=== PATIENT | female | born 1970 | race Caucasian/White ===

== ENCOUNTER → 2022-08-23 12:17 | Outpatient (BNVA) | payer OTHER, SELFPAY | PROVIDERS: Visit Provider Internal Medicine | DX: S93.491A Sprain of other ligament of right ankle, initial encounter (principal); W18.39XA Other fall on same level, initial encounter | CPT/HCPCS: 73610; 99204 ==

== ENCOUNTER 2024-01-13 14:19 | Outpatient (AMB) | payer OTHER, SELFPAY ==
--- NOTE | 2024-01-13 14:26 | A.OFFPC_ITS ---
Vital Signs 01/13/24 14:32 Height 5 ft 2 in Weight 167 lb BMI 30.5 BP 112/53 L Blood Pressure Location Rt brachial Position Sitting Respiration 16 Pulse 88 Pulse Source Pulse Oximeter Pulse Oximetry (%) 98 Oxygen Delivery Method Room Air Intake Visit Reasons: Establish Care transfer from [facility] Intake Note: patient here for new patient visit ,transferring from [facility]. 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: No Is last menstrual period known: No Post menopausal: No Patient : No Allergies pencillin Allergy (Severe, Uncoded 01/13/24 14:27) Anaphylaxis Tobacco use date assessed: 01/13/24 Dental Screening Dental Screen Date: 01/13/24 Did you have a dental visit in the last 12 months?: Yes Did you have a dental problem in the last 6 months where you did not have access to dental care?: No Was dental information given to patient?: Patient has dentist HPI HPI Comments History of Present Illness Details The patient is a 53 year old female with a past medical history of hypothyroidism, hyperlipidemia, depression, arthritis, seizure, presenting for follow up Hypothyroid-On levothyroxine 88mcg daily. MSK-Bilateral hip pain. R>L. More than one year. Chronic left foot pain. History of uterine polyp, ovarian cysts and PMB. Medication did not stop bleeding. Ended up getting transvaginal polypectomy/ablation of poly then bilate ral salpingoopherectomy. Insomnia-on trazodone Preventive Mammo-09/[address] Turcios-rohit 10 year repeat. ROS see HPI PHYSICAL EXAM: GENERAL: Alert and oriented x 3. NAD EYES: EOMI. Anicteric. HENT: Moist mucous membranes. No scleral icterus. No cervical lymphadenopathy. LUNGS: Clear to auscultation bilaterally. CARDIOVASCULAR: Regular rate and rhythm. No murmur. No JVD. ABDOMEN: Soft, non-tender +bs EXTREMITIES: No edema. Non-tender. SKIN: No rashes or lesions. Warm. NEUROLOGIC: No focal neurological deficits. CN II-XII grossly intact PSYCHIATRIC: Cooperative. 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 How often do you have a drink containing alcohol?: 2-4 times a month 2. How many drinks containing alcohol do you have on a typical day when you are drinking?: 3 or 4 3. How often do you have six or more drinks on one occasion?: Never Total Score: 3 Physical exam (Primary Care) Vital Signs: Last Vital Signs Pulse 88 01/13/24 14:32 Resp 16 01/13/24 14:32 BP 112/53 L 01/13/24 14:32 Pulse Ox 98 01/13/24 14:32 Oxygen Delivery Method Room Air 01/13/24 14:32 BMI result Body Mass Index 30.5 Tobacco/Smoking Status: Tobacco use Status Tobacco use date assessed 01/13/24 01/13/24 14:32 Patient Tobacco Use Status Former Tobacco user 01/13/24 14:32 e-Cigarette/Vaping Use Never Used 01/13/24 14:32 Assessment and Plan Assessment & Plan (1) Left foot pain: Code(s): M79.672 - Pain in left foot Plan: referral to ortho (2) Bilateral primary osteoarthritis of hip: Code(s): M16.0 - Bilateral primary osteoarthritis of hip Plan: referral to ortho placed (3) Hypothyroid: Code(s): E03.9 - Hypothyroidism, unspecified Qualifiers: Hypothyroidism type: unspecified Qualified Code(s): E03.9 - Hypothyroidism, unspecified Plan: clinically and biochemicall euthyroid Orders: Orders TSH reflex Free T4 01/13/24 E03.9 - Hypothyroidism, unspecified Referrals Orthopedics Referral M79.672 - Pain in left foot, M16.0 - Bilateral primary osteoarthritis of hip Medications: New levothyroxine 88 mcg PO DAILY 90 tabs 3RF Coding Level of Care Code Est Pt Level 4 (93441) Diagnoses Left foot pain M79.672 Bilateral primary osteoarthritis of hip M16.0 Hypothyroidism, unspecified type E03.9 Hypothyroidism type: unspecified
[2024-01-13 14:32] VITALS: BP 112/53; PULSE 88; RESP 16; O2SAT 98; BMI 30.5
== END 2024-01-13 15:29 | disposition home or self-care (01) ==
PROVIDERS: PCP Internal Medicine; Visit Provider Internal Medicine
DX: M79.672 Pain in left foot (principal); M16.0 Bilateral primary osteoarthritis of hip; E03.9 Hypothyroidism, unspecified
CPT/HCPCS: 99214

== ENCOUNTER 2024-01-13 15:32 | Outpatient (REF) | payer OTHER, SELFPAY ==
[2024-01-13 18:22] LABS: TSH reflex Free T4 0.21 uIU/mL (0.32-4.0)
[2024-01-13 21:20] LABS: Free T4 (Free Thyroxine) 1.51 ng/dL (0.71-1.85)
== END 2024-01-13 15:33 | disposition home or self-care (01) ==
LOC: HO.WFDLDS 15:32
PROVIDERS: Visit Provider Internal Medicine
DX: E03.9 Hypothyroidism, unspecified (principal)
CPT/HCPCS: 36415; 84439; 84443

== ENCOUNTER 2024-02-27 10:30 | Outpatient (AMB) | payer OTHER, SELFPAY ==
--- NOTE | 2024-02-27 10:46 | MHC.OFFWIV ---
Intake Vital Signs 02/27/24 10:50 Height 5 ft 2 in Weight 173 lb BMI 31.6 BP 112/62 Blood Pressure Location Lt brachial Position Sitting Respiration 14 Pulse 87 Pulse Source Pulse Oximeter Temp 98.6 F Temp Source Oral Pulse Oximetry (%) 99 Oxygen Delivery Method Room Air Intake Visit Reasons: est/uti Intake Note: patient complaining of burning when urinating and frequency x 2 days. Patient Tobacco Use Status: Former Tobacco user Allergies sulfamethoxazole [From Bactrim] Allergy (Intermediate, Verified 02/27/24 10:49) upset stomach trimethoprim [From Bactrim] Allergy (Intermediate, Verified 02/27/24 10:49) upset stomach pencillin Allergy (Severe, Uncoded 01/13/24 14:27) Anaphylaxis Do you need a note to return to daycare/school/sports/work: No HPI HPI Comments History of Present Illness Details 53 y/o female presents with c/o urinary frequency and burning with urination for the past 2 days. She has been hydrating with water and cranberry juice. She denies blood or discharge with urination. No abdominal pain or back pain. No fever, chills, body aches. 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 Current occupational exposures/hazards: No Cognitive needs: No Hearing needs: No Vision needs: Yes Review of Systems Const Details: Const Denies chills, Denies fatigue, Denies fever(s), Denies headache(s) and Denies weakness ENT Denies change in vision, Denies dizziness, Denies headache(s), Denies hearing loss, Denies nasal congestion, Denies sinus pain, Denies sinus pressure and Denies sore throat Resp Denies cough, Denies dyspnea, Denies wheezing and Denies other (shortness of breath) Cardio Denies chest pain, Denies lightheadedness, Denies dyspnea and Denies other (palpitations) Neuro Denies dizziness, Denies headache(s), Denies numbness, Denies tingling and Denies weakness Reports as per HPI Endo Denies fatigue Aller/Immun Denies wheezing Physical Exam Vital Signs: Last Vital Signs Temp 98.6 F 02/27/24 10:50 Pulse 87 02/27/24 10:50 Resp 14 02/27/24 10:50 BP 112/62 02/27/24 10:50 Pulse Ox 99 02/27/24 10:50 Oxygen Delivery Method Room Air 02/27/24 10:50 BMI result Body Mass Index 31.6 Const Other: Const General: well developed; No acute distress Nutritional Appearance: well nourished Orientation/consciousness: patient oriented x3 HEENT Head: Yes normocephalic and Yes atraumatic Eyes General: appearance normal, both eyes and all related structures Pupils: Equal, round and reactive pupils present EOM: EOMs intact bilaterally Resp Effort & Inspection: normal respiratory effort Auscultation: clear to auscultation bilaterally Cardio Rate: regular rate Rhythm: regular rhythm Heart sounds: S1 normal heart sound present, S2 normal heart sound present, no gallops, no murmurs and no rubs Bruits: no abdominal aortic bruits and no carotid bruits Neuro General: patient oriented x3 and gait normal, no focal neuro deficit Cranial nerves: Yes Equal, round and reactive pupils present GI Abdomen is soft, nontender, nondistended No CVA tenderness Psych Affect: normal affect Results AMB Urinalysis Dipstick UR Leukocytes Moderate Last Edit by Barbra Alonso MA on 02/27/24 11:15 UR Nitrite Negative Last Edit by Barbra Alonso MA on 02/27/24 11:15 UR Urobilinogen Normal Last Edit by Barbra Alonso MA on 02/27/24 11:15 UR Protein Negative Last Edit by Barbra Alonso MA on 02/27/24 11:15 UR Ph 6.0 Last Edit by Barbra Alonso MA on 02/27/24 11:15 UR Blood Negative Last Edit by Barbra Alonso MA on 02/27/24 11:15 UR Specific [place] 1.010 Last Edit by Barbra Alonso MA on 02/27/24 11:15 UR Ketone Negative Last Edit by Barbra Alonso MA on 02/27/24 11:15 UR Bilirubin Negative Last Edit by Barbra Alonso MA on 02/27/24 11:15 UR Glucose Negative Last Edit by Barbra Alonso MA on 02/27/24 11:15 Results Reviewed Results Reviewed: Laboratory Last Values Urine pH (Clinic) 6.0 02/27/24 11:08 Specific [place] (Clinic) 1.010 02/27/24 11:08 Ur Protein (Clinic) Negative 02/27/24 11:08 Ur Ketones (Clinic) Negative 02/27/24 11:08 Urine Blood (Clinic) Negative 02/27/24 11:08 Urine Nitrite Negative 02/27/24 11:08 Urine Bilirubin (Clinic) Negative 02/27/24 11:08 Urobilinogen (Clinic) Normal 02/27/24 11:08 Leukocyte Esterase (Clinic) Moderate 02/27/24 11:08 Urine Glucose (Clinic) Negative 02/27/24 11:08 Assessment & Plan Assessment & Plan (1) Urinary tract infection: Code(s): N39.0 - Urinary tract infection, site not specified Plan: Dysuria and urinary frequency x2 days No CVA tenderness Abdomen is soft, nontender, nondistended Urine dip is positive for leukocyte, negative for nitrite or blood Will send urine to the lab for urinalysis and culture Macrobid ordered. Advised to take as prescribed. Instructed on the risks, benefits, and potential adverse reactions of the medication Declines Pyridium for dysuria Adequate hydration encouraged Return with worsening or new symptoms Verbalized understanding and agreed with the treatment plan Orders: Orders UA CC w/rflx Micro + Cult Today N39.0 - Urinary tract infection, site not specified AMB Urinalysis Dipstick Today Z13.9 - Encounter for screening, unspecified Medications: New nitrofurantoin monohyd/m-cryst 100 mg (Macrobid) must administer with a meal/food 100 mg PO Q12H 10 caps 0RF 5 days Coding Level of Care Code Est Pt Level 3 (90517) Diagnoses Urinary tract infection N39.0
[2024-02-27 10:50] VITALS: BP 112/62; PULSE 87; RESP 14; TEMP 37; O2SAT 99; BMI 31.6
== END 2024-02-27 11:07 | disposition home or self-care (01) ==
PROVIDERS: PCP Internal Medicine; Visit Provider Nurse Practitioner Family
DX: N39.0 Urinary tract infection, site not specified (principal); Z13.9 Encounter for screening, unspecified

== ENCOUNTER 2024-02-27 10:30 | Outpatient (REF) | payer OTHER, SELFPAY ==
[2024-02-27 15:18] LABS: Appearance Urine Clear; Color Urine Yellow; Glucose Urine UA Negative (Negative); Leukocyte Esterase Urine Large (3+) (Negative); Nitrite Urine Negative (Negative); Specific Gravity - Urine <= 1.005 (1.005-1.025); UMIC TRIGGER UACC YES; Urine Blood Negative (Negative); Urine Ketones Negative (Negative); Urine Protein Negative (Neg-Trace)
[2024-02-27 15:24] LABS: Bacteria Urine 4+ (None Seen); Hyaline Casts Urine 0-2 /LPF (0-2); RBC Urine 0-2 /HPF (0-2); Squamous Epithelial Cell Urine 0-2 /HPF (0-2); UACC Culture Trigger YES; WBC Urine >50 /HPF (0-5)
== END 2024-02-27 10:31 | disposition home or self-care (01) ==
LOC: HO.LNP 10:30
PROVIDERS: PCP Internal Medicine; Visit Provider Nurse Practitioner Family
DX: N39.0 Urinary tract infection, site not specified (principal)
CPT/HCPCS: 81001; 81002; 87086; 87088; 87186

== ENCOUNTER → 2024-07-20 15:33 | Outpatient (BNVA) | payer OTHER, SELFPAY | PROVIDERS: PCP Internal Medicine; Visit Provider Internal Medicine | DX: Z00.00 Encounter for general adult medical examination without abnormal findings (principal); E03.9 Hypothyroidism, unspecified; E78.5 Hyperlipidemia, unspecified; F32.A Depression, unspecified; M16.0 Bilateral primary osteoarthritis of hip; M25.50 Pain in unspecified joint; G89.29 Other chronic pain; M53.3 Sacrococcygeal disorders, not elsewhere classified | CPT/HCPCS: 96127 ==

== ENCOUNTER → 2024-07-20 16:33 | Outpatient (AMB) | payer OTHER, SELFPAY ==
--- NOTE | 2024-07-20 15:59 | MHC.PC.OV ---
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 Chemical Process Engineer Required: No Allergies sulfamethoxazole [From Bactrim] Allergy (Intermediate, Verified 07/20/24 15:59) upset stomach trimethoprim [From Bactrim] Allergy (Intermediate, Verified 07/20/24 15:59) upset stomach pencillin Allergy (Severe, Uncoded 07/20/24 15:59) Anaphylaxis Tobacco use date assessed: 07/20/24 Dental Screening Dental Screen Date: 07/20/24 Did you have a dental visit in the last 12 months?: Yes Did you have a dental problem in the last 6 months where you did not have access to dental care?: No Was dental information given to patient?: Patient has dentist HPI HPI Comments History of Present Illness Details The patient is a 54 year old female with a past medical history of hypothyroidism, hyperlipidemia, depression, arthritis, seizure, presenting for physical exam Hypothyroid-On levothyroxine 88mcg daily. MSK-Bilateral hip pain. R>L. More than one year. Chronic left foot pain. Recent increased shoulder and neck pain. she has been doing a lot of painting. 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 Some right sided sciatica History of uterine polyp, ovarian cysts and PMB. Medication did not stop bleeding. Ended up getting transvaginal polypectomy/ablation of poly then bilateral salpingoopherectomy. Insomnia-on trazodone Recent sinus pressure, ear pain L>R. Congestion +post nasal drip Preventive Mammo-09/[address] Brody 10 year repeat. ROS see HPI PHYSICAL EXAM: GENERAL: Alert and oriented x 3. NAD EYES: EOMI. Anicteric. HENT: Moist mucous membranes. No scleral icterus. No cervical lymphadenopathy. LUNGS: Clear to auscultation bilaterally. CARDIOVASCULAR: Regular rate and rhythm. No murmur. No JVD. ABDOMEN: Soft, non-tender +bs EXTREMITIES: No edema. Non-tender. SKIN: No rashes or lesions. Warm. NEUROLOGIC: No focal neurological deficits. CN II-XII grossly intact PSYCHIATRIC: Cooperative. 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 1. Little interest or pleasure in doing things: not at all 2. Feeling down, depressed, or hopeless: not at all 3. Trouble falling or staying asleep, or sleeping too much: not at all 4. Feeling tired or having little energy: not at all 5. Poor appetite or overeating: not at all 6. Feeling bad about yourself - or that you are a failure or have let yourself or your family down: not at all 7. Trouble concentrating on things, such as reading the newspaper or watching television: not at all 8. Moving or speaking so slowly that other people could have noticed. Or the opposite - being so fidgety or restless that you have been moving around a lot more than usual: not at all 9. Thoughts that you would be better off or of hurting yourself in some way: not at all Total score: 0 Depression Screening Interpretation: Negative Depression Screening Done: Yes 25618 - PHQ-9 Billing: Yes Source: Developed by Drs. Jeffry Hurtado, Bella Aguayo, Artemio Land and colleagues, with an educational josephine from [employer]. Thrive Questionnaire Date Thrive assessed: 07/17/24 I am a: Patient What is your living situation today?: I have a steady place to live Within the past 12 months, did the food you bought not last and you didn't have the money to get more?: Never true Within the past 12 months, did you worry whether your food would run out before you got money to buy more?: Never true Do you have trouble paying for medicines?: No Do you have trouble getting transportation to medical appointments?: No Do you have trouble paying your heating and electricity bill?: No Do you have trouble taking care of your child, family member or friend?: No Do you have trouble with day-to-day activities such as bathing, preparing meals, shopping, managing finances, etc.?: No Are you currently unemployed and looking for a job?: No Are you interested in more education?: No Please select the resources that you would like help with: None Currently or been in a relationship where the following occur: No concerns reported THRIVE Score: 0 AUDIT C Alcohol Use Questionnaire (AUDIT-C) 1. How often do you have a drink containing alcohol?: Monthly or less 2. How many drinks containing alcohol do you have on a typical day when you are drinking?: 1 or 2 3. How often do you have six or more drinks on one occasion?: Less than monthly Total Score: 2 REDDY-7 AMB Questionnaire REDDY-7 Feeling nervous, anxious, or on edge: 0 = Not at all Not being able to stop or control worryin = Not at all Worrying too much about different things: 0 = Not at all Trouble relaxin = Not at all Being so restless that it is hard to sit still: 0 = Not at all Becoming easily annoyed or irritable: 0 = Not at all Feeling afraid as if something awful might happen: 0 = Not at all Total REDDY-7 score (0-4 normal; 5-9 mild; 10-14 moderate; 15-21 severe): 0 Source: Developed by Drs. Jeffry Hurtado, Bella Aguayo, Artemio Land and colleagues, with an educational josephine from [employer]. Physical exam (Primary Care) Vital Signs: Last Vital Signs Pulse 84 07/20/24 16:07 BP 112/78 07/20/24 16:07 Pulse Ox 99 07/20/24 16:07 Oxygen Delivery Method Room Air 07/20/24 16:07 BMI result Body Mass Index 31.9 Tobacco/Smoking Status: Tobacco use Status Tobacco use date assessed 07/20/24 07/20/24 16:00 Patient Tobacco Use Status Former Tobacco user 07/20/24 16:00 e-Cigarette/Vaping Use Never Used 07/20/24 16:00 PHQ-9: PHQ-9 Score PHQ-9: Total score 0 07/21/24 09:41 Depression Screening Interpretation: Negative Thrive Assessment: Date of Thrive Assessment Date Thrive assessed 07/17/24 07/20/24 16:00 Currently or been in a relationship where the following occur: No concerns reported Coding Level of Care Code Est Pt Prev Care 40-64y(82198) Diagnoses Physical exam Z00.00 Hypothyroidism, unspecified type E03.9 Hypothyroidism type: unspecified Additional Codes PHQ-9 - 28509 - PHQ-9 Billing: Yes ([id number]) Assessment & Plan Assessment & Plan (1) Physical exam: Code(s): Z00.00 - Encounter for general adult medical examination without abnormal findings Category: Medical Plan: 54 year old female for physical exam Chronic medical conditions reviewed. Interval history reviewed. Medications reconciled (2) Hypothyroid: Code(s): E03.9 - Hypothyroidism, unspecified Category: Medical Qualifiers: Hypothyroidism type: unspecified Qualified Code(s): E03.9 - Hypothyroidism, unspecified Plan: Recheck TSH. Avoid biotin containing products for 72 hours prior to lab draw Orders: Orders TSH reflex Free T4 07/20/24 E03.9 - Hypothyroidism, unspecified, M16.0 - Bilateral primary osteoarthritis of hip, M25.50 - Pain in unspecified joint, Z00.00 - Encounter for general adult medical examination without abnormal findings Lyme IgG/IgM w/reflex to WB 07/20/24 M25.50 - Pain in unspecified joint Comprehensive Met. Panel 07/20/24 E03.9 - Hypothyroidism, unspecified, M16.0 - Bilateral primary osteoarthritis of hip, M25.50 - Pain in unspecified joint, Z00.00 - Encounter for general adult medical examination without abnormal findings Lipid Panel 07/20/24 E03.9 - Hypothyroidism, unspecified, M16.0 - Bilateral primary osteoarthritis of hip, M25.50 - Pain in unspecified joint, Z00.00 - Encounter for general adult medical examination without abnormal findings Complete Blood Count Auto Diff 07/20/24 E03.9 - Hypothyroidism, unspecified, M16.0 - Bilateral primary osteoarthritis of hip, M25.50 - Pain in unspecified joint, Z00.00 - Encounter for general adult medical examination without abnormal findings XR lumbar spine 2-3V 07/20/24 G89.29 - Other chronic pain, M53.3 - Sacrococcygeal disorders, not elsewhere classified Medications: New doxycycline hyclate 100 mg PO BID 14 tabs 0RF
[2024-07-20 16:07] VITALS: BP 112/78; PULSE 84; O2SAT 99; BMI 31.9
== END | disposition home or self-care (01) ==
PROVIDERS: PCP Internal Medicine; Visit Provider Internal Medicine
DX: Z00.00 Encounter for general adult medical examination without abnormal findings (principal); E03.9 Hypothyroidism, unspecified

== ENCOUNTER 2024-07-28 13:41 | Outpatient (REF) | payer OTHER, SELFPAY ==
--- OUTSIDE RECORDS SUMMARY | 2024-07-28 14:39 | XMS_ITS | Encounter Summary ---
Author Organization [employer] [facility] Address [address] [place] [address] [place] [address] Care Team Providers Care Environmental Research Scientist Name Role Phone Unavailable Primary Care Provider Unavailabl e Encounter Details Date Type Department Care Team (Latest Contact Info) Description 08/08/2021 Abstract [facility] CONVERSION[facility] Dental, Provider, DDS Social History Tobacco Use Types Packs/Day Years Used Date Smoking Tobacco: Never Assessed Comments Unknown Sex and Gender Information Value Date Recorded Sex Assigned at Not on file Legal Sex Female 5:36 PM EDT Gender Identity Not on file Sexual Orientation Not on file documented as of this encounter Plan of Treatment Not on file documented as of this encounter Visit Diagnoses Not on filedocumented in this encounter
--- OUTSIDE RECORDS SUMMARY | 2024-07-28 14:39 | XMS_ITS | Encounter Summary ---
Author Organization [email or web address] [facility] Address [address] [place] [address] [place] [address] Care Team Providers Care Legal Investigator Name Role Phone Unavailable Primary Care Provider Unavailabl e Encounter Details Date Type Department Care Team (Latest Contact Info) Description 08/10/2019 [facility] CONVERSION[facility] Dental, Provider, DDS Social [...]
--- OUTSIDE RECORDS SUMMARY | 2024-07-28 14:39 | XMS_ITS | Encounter Summary ---
Author Organization [email or web address] [facility] Address [address] [place] [address] 7 [place] [address] Care Team Providers Care Dielectric Tester Name Role Phone Unavailable Primary Care Provider Unavailabl e Encounter Details Date Type Department Care Team (Latest Contact Info) Description 06/25/2018 Abstract [facility] CONVERSION[facility] Dental, Provider, DDS Social [...]
--- OUTSIDE RECORDS SUMMARY | 2024-07-28 14:39 | XMS_ITS | Clinical Summary ---
Author Organization [employer] Address [address] [place] [address] [address] [place] [address] Care Team Providers Care Fire Investigator Name Role Phone Unavailable Primary Care Provider Unavailabl e Social History Tobacco Use Types Packs/Day Years Used Date Smoking Tobacco: Never Assessed Comments Unknown Sex and Gender Information Value Date Recorded Sex Assigned at Not on file Legal Sex Female 5:36 PM EDT Gender Identity Not on file Sexual Orientation Not on file Plan of Treatment Health Maintenance Due Date Last Done Comments CT Colonography 1970 Colonoscopy 1970 Colorectal Cancer Screening 1970 Depression Screening 1970 FIT DNA/Cologuard 1970 FIT 1970 FOBT 1970 Sigmoidoscopy 1970 Alcohol/Substance Use Screening 1982 Tobacco Screening 1982 Hepatitis B Vaccines (1 of 3 - 19+ 3-dose series) 1989 Pap Smear 1991 Cervical Cancer Screening 2000 HPV/Cotest 2000 Dental X-Ray: Full Mouth 04/13/2008 04/12/2005 Mammogram 2010 Pneumococcal Vaccine: 50+ Years (1 of 1 - PCV) 2020 Zoster Vaccines (1 of 2) 2020 Dental X-Ray: Bitewings 08/10/2020 08/10/19 20, 06/25/2018, 10/24/2016, Additional history exists Dental Oral Exam 02/09/2022 08/08/2021, , 08/10/2019, Additional history exists Dental Prophylaxis 02/09/2022 08/08/2021, 0 12/01/2020, 08/10/2019, Additional history exists COVID-19 Vaccine ( season) 2024 05/17/2021, 04/26/2021 Influenza Vaccine (#1) 2024 9, 02/25/2018, 03/12/2014, Additional history exists DTaP/Tdap/Td Vaccines (3 - Td or Tdap) 12/29/2030 12/29/2020, 05/14/2011 RSV Patients and Patients Aged 60 years or older (1 - 1-dose 75+ series) 2045 HIB Vaccines Aged Out No longer eligi ble based on patient's age to complete this topic HPV Vaccines Aged Out No longer eligi ble based on patient's age to complete this topic Hepatitis A Vaccines Aged Out No long er eligible based on patient's age to complete this topic IPV Vaccines Aged Out No longer eligi ble based on patient's age to complete this topic Meningococcal Vaccine Aged Out No carmen nasir eligible based on patient's age to complete this topic Pneumococcal Vaccine: Pediatrics (0 to 5 Years) and At-Risk Patients (6 to 49) Years) Aged Out No longer eligible based on patient's age to complete this topic RSV under 20 months Aged Out No longe r eligible based on patient's age to complete this topic Rotavirus Vaccines Aged Out No longer eligible based on patient's age to complete this topic Procedures Procedure Name Priority Date/Time Associated Diagnosis Comments PROPHYLAXIS - ADULT Routine 08/08/2021 1 2:00 AM EST PERIODIC ORAL EVALUATION - ESTABLISHED PATIENT Routine 08/08/2021 12:00 AM EST BITEWINGS - 4 RADIOGRAPHIC IMAGES Routine 08/10/2019 12:00 AM EST INTRAORAL - COMPLETE SERIES OF RADIOGRAPHIC IMAGES Routine 04/12/2005 12:00 AM EST from Last 3 Months or Most Recently Relevant to Health Maintenance
--- OUTSIDE RECORDS SUMMARY | 2024-07-28 14:39 | XMS_ITS | Encounter Summary ---
Author Organization [employer] [facility] Address [address] [place] [address] 7 [place] [address] Care Team Providers Care Automobile Mechanic Name Role Phone Unavailable Primary Care Provider Unavailabl e Encounter Details Date Type Department Care Team (Latest Contact Info) Description 12/01/2020 Abstract [facility] CONVERSION[facility] Dental, Provider, DDS Social [...]
[2024-07-28 17:45] LABS: MANUAL DIFF FLAG NO
[2024-07-28 17:57] LABS: Basophils Absolute Auto 0.1 X10*3/uL (0.0-0.2); Basophils Percent Auto 0.7 % (0-2); Eosinophils Absolute Auto 0.1 X10*3/uL (0.0-0.4); Eosinophils Percent Auto 1.4 % (0-4); Hematocrit 42.5 % (37.0-47.0); Hemoglobin 13.5 g/dl (12.0-16.0); Imm Gran Abs Auto 0.02 X10*3/uL (0.00-0.03); Imm Gran Pct Auto 0.3 % (0.0-0.4); Lymphocytes Absolute Auto 3.7 X10*3/uL (1.2-4.9); Mean Corpuscular HGB Conc 31.8 g/dl (31.0-35.0); Mean Corpuscular Hemoglobin 29.7 pg (27.0-33.0); Mean Corpuscular Volume 93.6 fL (80.0-98.0); Mean Platelet Volume 9.7 fL (9.4-12.3); Monocytes Absolute Auto 0.3 X10*3/uL (0.1-1.2); Monocytes Percent Auto 4.5 % (2-11); Neutrophils Absolute Auto 2.9 x10*3/uL (2.0-8.3); Neutrophils Percent Auto 41.1 % (45-73); Platelet Count 307 X10*3/uL (160-400); Red Blood Count 4.54 X10*6/uL (4.20-5.50); White Blood Count 7.1 X10*3/uL (4.8-10.8)
[2024-07-28 18:27] LABS: Alanine Aminotransferase 28 U/L (0-31); Albumin Level 4.4 g/dL (3.5-5.0); Alkaline Phosphatase 69 U/L (39-117); Anion Gap 11 (12-20); Aspartate Amino Transferase 26 U/L (5-31); Bilirubin Total 0.5 mg/dL (0.0-1.0); Blood Urea Nitrogen 19 mg/dL (9-16); Calcium 9.6 mg/dL (8.4-10.2); Carbon Dioxide 28 mmol/L (22-29); Chloride 108 mmol/L (96-108); Cholesterol 226 mg/dL (<200); Estimated Glomerular Filt Rate > 60; Glucose Random 82 mg/dL (60-115); HDL Cholesterol 49 mg/dL (>40); LDL Cholesterol Calculated 98 mg/dL (<100); Potassium 4.2 mmol/L (3.3-5.1); Sodium 143 mmol/L (135-145); Total Protein 8.1 g/dL (6.5-8.0); Triglycerides 397 mg/dL (<150)
[2024-07-29 08:44] LABS: Lyme Abs Screen <0.90 index
== END 2024-07-28 13:42 | disposition home or self-care (01) ==
LOC: HO.WFDLDS 13:41
PROVIDERS: Visit Provider Internal Medicine
DX: Z00.00 Encounter for general adult medical examination without abnormal findings (principal); M16.0 Bilateral primary osteoarthritis of hip; E03.9 Hypothyroidism, unspecified; M25.50 Pain in unspecified joint
CPT/HCPCS: 36415; 80053; 80061; 84443; 85025; 86617; 86618

== ENCOUNTER 2024-08-05 13:14 | Outpatient (REF) | payer OTHER, SELFPAY ==
[2024-08-05 14:29] LABS: Basophils Percent Auto 0.5 % (0-2); Eosinophils Absolute Auto 0.1 X10*3/uL (0.0-0.4); Eosinophils Percent Auto 1.6 % (0-4); Hematocrit 38.4 % (37.0-47.0); Hemoglobin 12.2 g/dl (12.0-16.0); Imm Gran Abs Auto 0.01 X10*3/uL (0.00-0.03); Imm Gran Pct Auto 0.2 % (0.0-0.4); Lymphocytes Absolute Auto 3.6 X10*3/uL (1.2-4.9); Lymphocytes Percent Auto 62.8 % (20-40); MANUAL DIFF FLAG SCAN; Mean Corpuscular HGB Conc 31.8 g/dl (31.0-35.0); Mean Corpuscular Hemoglobin 29.6 pg (27.0-33.0); Mean Corpuscular Volume 93.2 fL (80.0-98.0); Mean Platelet Volume 9.8 fL (9.4-12.3); Monocytes Absolute Auto 0.3 X10*3/uL (0.1-1.2); Neutrophils Absolute Auto 1.7 x10*3/uL (2.0-8.3); Neutrophils Percent Auto 29.9 % (45-73); Platelet Count 240 X10*3/uL (160-400); Red Blood Count 4.12 X10*6/uL (4.20-5.50); Red Cell Distribution Width 12.9 % (11.0-16.0); SCAN SMEAR FLAG 1; White Blood Count 5.8 X10*3/uL (4.8-10.8)
[2024-08-05 14:49] LABS: SLIDE REVIEW VERIFIED
--- OUTSIDE RECORDS SUMMARY | 2024-08-05 16:12 | XMS_ITS | Encounter Summary ---
Author Organization [employer] [facility] Address [address] [place] [address] 7 [place] [address] Care Team Providers Care Cartographic Aide Name Role Phone Unavailable Primary Care Provider [...]
--- OUTSIDE RECORDS SUMMARY | 2024-08-05 16:12 | XMS_ITS | Encounter Summary ---
Author Organization [facility] Address [address] [place] [address] [place] [address] Care Team Providers Care Transit Planning Director Name Role Phone Unavailable Primary Care Provider [...]
--- OUTSIDE RECORDS SUMMARY | 2024-08-05 16:12 | XMS_ITS | Clinical Summary ---
Author Organization [employer] Address [address] [place] [address] 7 [place] [address] Care Team Providers Care Crude Oil Treater Name Role Phone Unavailable Primary Care Provider [...]
--- OUTSIDE RECORDS SUMMARY | 2024-08-05 16:13 | XMS_ITS | Encounter Summary ---
Author Organization [facility] [facility] Address [address] [place] [address] [place] [address] Care Team Providers Care Paperboard Boxes Estimator Name Role Phone Unavailable Primary Care Provider [...]
--- OUTSIDE RECORDS SUMMARY | 2024-08-05 16:13 | XMS_ITS | Encounter Summary ---
Author Organization [facility] Address [address] [place] [address] 7 [place] [address] Care Team Providers Care Psychiatric Nurse Name Role Phone Unavailable Primary Care Provider [...]
== END 2024-08-05 13:15 | disposition home or self-care (01) ==
LOC: HO.WFDLDS 13:14
PROVIDERS: Visit Provider Internal Medicine
DX: M79.89 Other specified soft tissue disorders (principal)
CPT/HCPCS: 85025

== ENCOUNTER 2024-09-30 08:07 | Outpatient (AMB) | payer OTHER, SELFPAY ==
--- OUTSIDE RECORDS SUMMARY | 2024-09-30 08:18 | XMS_ITS | Encounter Summary ---
Author Organization [employer] [facility] Address [address] [place] [address] 7 [place] [address] Care Team Providers Care Rollout Manager Name Role Phone Unavailable Primary Care Provider [...]
--- OUTSIDE RECORDS SUMMARY | 2024-09-30 08:18 | XMS_ITS | Encounter Summary ---
Author Organization [employer] [facility] Address [address] [place] [address] 7 [place] [address] Care Team Providers Care Escalation Engineer Name Role Phone Unavailable Primary Care Provider [...]
--- OUTSIDE RECORDS SUMMARY | 2024-09-30 08:18 | XMS_ITS | Encounter Summary ---
Author Organization [facility] Address [address] [place] [address] [place] [address] Care Team Providers Care Copy Coordinator Name Role Phone Unavailable Primary Care Provider [...]
--- OUTSIDE RECORDS SUMMARY | 2024-09-30 08:18 | XMS_ITS | Encounter Summary ---
Author Organization [facility] Address [address] [place] [address] [place] [address] Care Team Providers Care Nutrition Services Associate Name Role Phone Unavailable Primary Care Provider [...]
--- OUTSIDE RECORDS SUMMARY | 2024-09-30 08:18 | XMS_ITS | Clinical Summary ---
Author Organization [facility] Address [address] [place] [address] 7 [place] [address] Care Team Providers Care Mechanical Drawing Teacher Name Role Phone Unavailable Primary Care Provider [...]
--- OUTSIDE RECORDS SUMMARY | 2024-09-30 08:19 | XMS_ITS | Clinical Summary ---
Author Organization [facility] it Address [address] [place] [address] Care Team Providers Care Still Tender Name Role Phone Unavailable Primary Care Provider Unavailabl e Allergies Active Allergy Reactions Criticality Noted Date Comments Penicillins Anaphylaxis High 07/02/2011 Sulfamethoxazole-Trimethopr im 07/17/2013 Bactrim [Sulfamethoxazole W-trimethoprim] - Vomiting - 07/17/2013 Sulfamethoxazole-trimet hoprim - Medications levothyroxine (SYNTHROID, LEVOTHROID) 88 mcg tablet Take 1 Tablet by mouth daily. 02/06/2022 Active levothyroxine (SYNTHROID, LEVOTHROID) 50 mcg tablet TAKE 1 TABLET BY MOUTH EVERY DAY 07/10/2021 Active diphenhydrAMINE (BENADRYL) 25 mg capsule Take 1 Capsule by mouth. 01/03/2022 Active APPLE CIDER VINEGAR ORAL APPLE CIDER VINEGAR OR Take by mouth Active Active Problems Problem Noted Date Diagnosed Date Endometrial polyp 11/01/2021 Hydrosalpinx 11/01/2021 Overview (08/12/2024): Seen on u/s 11/01/2021 Left ovarian cyst 11/01/2021 Overview (08/12/2024): Pelvic sono 11/01/21: 4.1 x 4.0 x 2.0 cm septated left ovarian cyst Acquired hypothyroidism 01/25/2021 Arthritis, hip 01/05/2019 Immunizations Name Administration Dates Next Due Influenza Quadravalent, MDCK , 0.5ml, preservative free (Flucelvax) 6mo and older 02/18/2019,02/25/2018 Influenza trivalent, with pr eservative (Fluzone; Afluria) 6mo and older 03/12/2014,07/05/2009 MMR, measles mumps and rubel la Live (Priorix; M-M-R II) 12mo and older 02/25/[address] SARS-CoV-2 COVID-19, mRNA, LNP-S, preservative free 05/17/2021,04/26/2021 Td Tetanus diptheria (Tdvax) 7yo and older 12/29 Tdap Tetanus diptheria acell ular pertussis (Boostrix; Adacel) 7yo and older 05/14/2011 Surgical History Surgery Date Site/Laterality Comments TUBAL LIGATION PROCEDURE: HISTORICAL TUBAL LIGATION KNEE SURGERY PROCEDURE: HISTORICAL KNEE SURGERY; COMMENT: age 14 OTHER SURGICAL HISTORY PROCEDURE: HISTORICAL EAR SURGERY; COMMENT: as child WISDOM TOOTH EXTRACTION PROCEDURE: HISTORICAL WISDOM TEETH EXTRACTION OTHER SURGICAL HISTORY 09/24/11 PROCEDURE: [place] SALPINGOSTOMY; COMMENT: tubal reanastomosis OTHER SURGICAL HISTORY PROCEDURE: HISTORICAL D&C COLONOSCOPY PROCEDURE: HISTORICAL COLONOSCOPY; COMMENT: with endoscopy Medical History Medical History Date Comments Former smoker DX:Former smoker UTI (lower urinary tract infection) DX:UTI (lower urinary tract infection) Abnormal Pap smear of cervix 2006 DX: Abnormal Pap smear of cervix; COMMENT: colpo done, normal results since 2009 Syncope 1999 DX:Syncope; COMM ENT: ? seizure, one time, no recurrence Depression DX:Depression Family History Medical History Relation Name Comments Diabetes Mother Heart failure Mother Hypertension Mother Ovarian cancer Paternal Grandmother Breast cancer Neg Hx Colon cancer Neg Hx Uterine cancer Neg Hx Relation Name Status Comments Brother Alive half sib on mot her's side-bipolar disorder Daughter Alive healthy Father Alive unknown to zara ent. Raging alcoholic Maternal Grandfather (Age 60s) M I Maternal Grandmother (Age 60ish) suicide Mother Alive Paternal Grandfather (Age 80s) o ld age Paternal Grandmother (Age 80s) s moker, COPD Sister Alive half sib on fat her's side-healthy (not well known to patient) Son Alive healthy Social History Tobacco Use Types Packs/Day Years Used Date Smoking Tobacco: Former Cigarettes Q uit: 11/19/2006 Smokeless Tobacco: Never Alcohol Use Standard Drinks/Week Comments Yes 0 (1 standard drink = 0.6 oz pur e alcohol) Comments Unknown Sex and Gender Information Value Date Recorded Sex Assigned at Not on file Legal Sex Female 10:49 AM EST Gender Identity Not on file Sexual Orientation Not on file Obstetrics History Last Filed Vital Signs Vital Sign Reading Time Taken Comments Blood Pressure 101/68 08/14/2023 2:20 PM EST Sit ting L Arm Pulse 67 08/14/2023 2:20 PM EST Temperature - - Respiratory Rate - - Oxygen Saturation - - Inhaled Oxygen Concentration - - Weight 75.8 kg (167 lb) 08/14/2023 2:20 PM EST Height 157.5 cm (5' 2 ) 08/14/2023 2:20 PM EST Body Mass Index 30.54 08/14/2023 2:20 PM EST Plan of Treatment Upcoming Encounters Date Type Department Care Team (Late st Contact Info) Description 11/20/2024 2:30 PM EDT Office Visit Obstetrics and Gynecology - [address] [phone] Georgina Guidry, [facility] [address] [place] [address] Health Maintenance Due Date Last Done Comments Hepatitis B Vaccines (1 of 3 - 19+ 3-dose series) 1989 Pneumococcal Vaccine: 50+ Years (1 of 1 - PCV) 2020 Zoster Vaccines (1 of 2) 2020 Breast Cancer Screening 07/02/2020 07/02/2018, 06/25 Depression Screening 05/19/2022 HIV Screening 05/19/2022 Hepatitis C Screening 05/19/2022 Social Influencers of Health Screening 05/19/2022 COVID-19 Vaccine ( season) 2024 05/17/2021, 04/26/2021 Influenza Vaccine (Season Ended) 2025 02/18/2019, 02/25/2018, 03/12/2014, Additional history exists Cholesterol Screening (Lipid Panel) 12/29/2025 12/29/2020 Colorectal Cancer Screening: Colonoscopy 08/07/2028 08/07/2018 Cervical Cancer Screening: HPV 08/15/2028 08/16/2023 DTaP,Tdap,and Td Vaccines (3 - Td or Tdap) 12/29/2030 12/29/2020, 05/14/2011 MMR Vaccines Aged Out 02/25/2018 No longer eligi ble based on patient's age to complete this topic HIB Vaccines Aged Out No longer eligi [...] patient's age to complete this topic Meningococcal ACWY Vaccine Aged Out N o longer eligible based on patient's age to complete this topic Meningococcal B Vaccine Aged Out No l onger eligible based on patient's age to complete this topic Pneumococcal Vaccine: Pediatrics (0 to 5 Years) and At-Risk Patients (6 to 64 Years) Aged Out No longer eligible based on patient's age to complete this topic RSV Immunization Patients Under 20 months Aged Out No longer eligible based on patient's age to complete this topic Varicella Vaccines Aged Out No longer eligible based on patient's age to complete this topic Procedures Procedure Name Priority Date/Time Associated Diagnosis Comments HPV Routine 08/16/2023 LIPID PANEL Routine 12/29/2020 COLONOSCOPY Routine 08/07/2018 SCR MAMMO BI INCL CAD Routine 07/02/2018 3:39 PM EST Encounter for screening mammogram for malignant neoplasm of breast from Last 3 Months or Most Recently Relevant to Health Maintenance Results * Cervical Cancer Screening: HPV (08/16/2023) Pathologist [facility] Cervical Cancer Screening: HPV negative, abstracted us Historical Provider HEALTH MAINTENANCE Final Result * (ABNORMAL) Lipid panel (12/29/2020) LDL/HDL Ratio 4 0 - 4 Triglycerides 210(A) 0 - 150 mg/dL Cholesterol 251(A) 0 - 200 mg/dL HDL 58 >=40 mg/dL LDL Cholesterol 151(A) 0 - 100 mg/dL Blood Venous blood specimen / Unknown Historical Provider LAB BLOOD ORDERABLES Dara l Result * Colonoscopy (08/07/2018) Colonoscopy normal, abstracted Anatomical Region Laterality Modality Other Historical Provider HEALTH MAINTENANCE Final Result * SCR MAMMO BI INCL CAD (07/02/2018 3:39 PM EST) Anatomical Region Laterality Modality Radiographic Kaleigh ging 06/26/2018 12:1 1 PM EST Narrative 07/02/2018 3:43 PM EST This is a summary report. The complete report is available in the patient's medical record. If you cannot access the medical record, please contact the sending organization for a detailed fax or copy. Repeat MLO view right breast History: Incomplete posterior tissue on right MLO view on screening mammogram of 06/25/2018. Technique: Repeat MLO view right breast, reviewed with CAD. Findings: The breast tissue is heterogeneously dense without suspicious calcifications, masses or architectural distortion. Impression: No mammographic evidence of malignancy. BI-RADS 1-negative Procedure Note Laura Maria MD - 05/29/2022 This is a summary report. The complete report is available in thepatient's medical record. If you cannot access the medical record, pleasecontact the sending organization for a detailed fax or copy. Repeat MLO view right breast History: Incomplete posterior tissue on right MLO view on screeningmammogram of 06/25/2018. Technique: Repeat MLO view right breast, reviewed with CAD. Findings: The breast tissue is heterogeneously dense without suspiciouscalcifications, masses or architectural distortion. Impression: No mammographic evidence of malignancy. BI-RADS 1-negative Result [facility] [place] Renee CNM IMG XR PROCEDURES Fin al Result from Last 3 Months or Most Recently Relevant to Health Maintenance Insurance [facility] [address] [place] [address] Advance Directives Documents on File Type Date Recorded Patient Enterprise Project Manager Expl anation Health Care Decision (hx) 05/28/2022 [facility] PROX[facility]
--- NOTE | 2024-09-30 08:28 | A.OFFPC_ITS ---
Vital Signs 09/30/24 08:30 Height 5 ft 2 in Weight 175 lb BMI 32.0 BP 98/70 Blood Pressure Location Lt brachial Position Sitting Respiration 12 Pulse 98 Pulse Source Pulse Oximeter Temp 98.2 F Temp Source Oral Pulse Oximetry (%) 97 Oxygen Delivery Method Room Air Intake Visit Reasons: Urinary tract infection Intake Note: Frequency, burning while urinating. Ethylene Oxide Panelboard Operator Required: No Allergies sulfamethoxazole [From Bactrim] Allergy (Intermediate, Verified 09/30/24 08:28) upset stomach trimethoprim [From Bactrim] Allergy (Intermediate, Verified 09/30/24 08:28) upset stomach pencillin Allergy (Severe, Uncoded 09/30/24 08:28) Anaphylaxis Medication List - Last Reconciled 09/30/24 by Naina Avendano PA-C famotidine (Pepcid AC) PO levothyroxine 88 mcg PO DAILY Tobacco use date assessed: 07/20/24 Dental Screening Dental Screen Date: 07/20/24 HPI Urinary tract infection HPI Details Patient is a 54-year-old female who presents today to the walk-in clinic with concerns of a possible UTI. Her symptoms started 2 days ago. She reports dysuriav , increased urinary frequency and urgency. No flank pain, fever, chills, abdominal pain, nausea or vomiting. Denies any abnormal vaginal discharge or bleeding. 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 Current occupational exposures/hazards: No Cognitive needs: No Hearing needs: No Vision needs: Yes Questionnaire Thrive Questionnaire Date Thrive assessed: 07/17/24 Physical exam (Primary Care) Vital Signs: Last Vital Signs Temp 98.2 F 09/30/24 08:30 Pulse 98 09/30/24 08:30 Resp 12 09/30/24 08:30 BP 98/70 09/30/24 08:30 Pulse Ox 97 09/30/24 08:30 Oxygen Delivery Method Room Air 09/30/24 08:30 BMI result Body Mass Index 32.0 Tobacco/Smoking Status: Tobacco use Status Tobacco use date assessed 07/20/24 09/30/24 08:31 Patient Tobacco Use Status Former Tobacco user 09/30/24 08:31 e-Cigarette/Vaping Use Never Used 09/30/24 08:31 Thrive Assessment: Date of Thrive Assessment Date Thrive assessed 07/17/24 09/30/24 08:31 Const Orientation/consciousness: patient oriented x3 HENMT Ears: hearing grossly normal bilaterally Neck Thyroid: Thyroid normal Lymphatic: no lymphadenopathy noted Resp Auscultation: clear to auscultation bilaterally Cardio Rate: regular rate Rhythm: regular rhythm Heart sounds: S1 normal heart sound present and S2 normal heart sound present GI Inspection: Yes normal to inspection Palpation (GI): Soft to palpation and Other GI palpation findings present (nontender, no cva tenderness) Auscultation: normoactive bowel sounds Skin General skin exam: no rashes or lesions noted Neuro General: patient oriented x3, gait normal and no focal motor deficits Coding Level of Care Code Est Pt Level 3 (37566) Diagnoses Urinary tract infection N39.0 Assessment & Plan Assessment & Plan (1) Urinary tract infection: Code(s): N39.0 - Urinary tract infection, site not specified Category: Medical Plan: start marcobid We will culture urine Advised to contact us if symptoms fail to improve or if anything worsens or changes should she develop any flank pain, fever, vomiting etc.. Orders: Orders Urine Culture Today N39.0 - Urinary tract infection, site not specified Medications: New nitrofurantoin monohyd/m-cryst 100 mg (Macrobid) must administer with a meal/food 100 mg PO Q12H 7 days 14 caps 0RF
[2024-09-30 08:30] VITALS: BP 98/70; PULSE 98; RESP 12; TEMP 36.8; O2SAT 97; BMI 32.0
== END 2024-09-30 08:41 | disposition home or self-care (01) ==
PROVIDERS: PCP Internal Medicine; Visit Provider Physician Assistant
DX: N39.0 Urinary tract infection, site not specified (principal)

== ENCOUNTER 2024-09-30 08:07 | Outpatient (REF) | payer OTHER, SELFPAY ==
--- OUTSIDE RECORDS SUMMARY | 2024-09-30 18:47 | XMS_ITS | Clinical Summary ---
Author Organization [facility] it Address [address] [place] [address] Care Team Providers Care Supervisor Statement Clerks Name Role Phone Unavailable Primary Care Provider [...] (Priorix; M-M-R II) 12mo and older 02/25/2018 [facility] SARS-CoV-2 COVID-19, mRNA, LNP-S, preservative free 05/17/2021,04/26/2021 [...] TEETH EXTRACTION OTHER SURGICAL HISTORY 09/24/11 PROCEDURE: [place] SALPINGOSTOMY; COMMENT: tubal reanastomosis OTHER SURGICAL HISTORY [...] EDT Office Visit Obstetrics and Gynecology - [address] [phone] Georgina Guidry, [facility] [address] [place] [address] Health Maintenance Due Date Last Done Comments [...] Cervical Cancer Screening: HPV (08/16/2023) Pathologist [facility] Cervical Cancer Screening: HPV negative, abstracted us [...] mammographic evidence of malignancy. 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
--- OUTSIDE RECORDS SUMMARY | 2024-09-30 18:47 | XMS_ITS | Encounter Summary ---
Author Organization [employer] [facility] Address [address] [place] [address] [place] [address] Care Team Providers Care Director Chemistry Name Role Phone Unavailable Primary Care Provider [...]
--- OUTSIDE RECORDS SUMMARY | 2024-09-30 18:47 | XMS_ITS | Encounter Summary ---
Author Organization [employer] [facility] Address [address] [place] [address] [place] [address] Care Team Providers Care Cattle And Wheat Farmer Name Role Phone Unavailable Primary Care Provider [...]
--- OUTSIDE RECORDS SUMMARY | 2024-09-30 18:47 | XMS_ITS | Encounter Summary ---
Author Organization [employer] [facility] Address [address] [place] [address] 7 [place] [address] Care Team Providers Care Blood Collector Name Role Phone Unavailable Primary Care Provider [...]
--- OUTSIDE RECORDS SUMMARY | 2024-09-30 18:47 | XMS_ITS | Clinical Summary ---
Author Organization [employer] Address [address] [place] [address] 7 [place] [address] Care Team Providers Care Port Steward Name Role Phone Unavailable Primary Care Provider [...]
--- OUTSIDE RECORDS SUMMARY | 2024-09-30 18:47 | XMS_ITS | Encounter Summary ---
Author Organization [employer] [facility] Address [address] [place] [address] 7 [place] [address] Care Team Providers Care Field Artillery Basic Name Role Phone Unavailable Primary Care Provider [...]
== END 2024-09-30 08:08 | disposition home or self-care (01) ==
LOC: HO.LNP 08:07
PROVIDERS: PCP Internal Medicine; Visit Provider Physician Assistant
DX: N39.0 Urinary tract infection, site not specified (principal); B96.20 Unspecified Escherichia coli [E. coli] as the cause of diseases classified elsewhere
CPT/HCPCS: 87086; 87088; 87186

== ENCOUNTER 2024-10-21 11:08 | Outpatient (AMB) | payer OTHER, SELFPAY ==
--- NOTE | 2024-10-21 11:26 | MHC.PC.OV ---
Vital Signs 10/21/24 11:27 Height 5 ft 2 in Weight 177 lb 2 oz BMI 32.4 BP 114/74 Blood Pressure Location Lt brachial Position Sitting Respiration 12 Pulse 76 Pulse Source Pulse Oximeter Pulse Oximetry (%) 97 Oxygen Delivery Method Room Air Intake Visit Reasons: UTI infection Intake Note: Urinary frequency, burning, pressure Allergies sulfamethoxazole [From Bactrim] Allergy (Intermediate, Verified 10/21/24 11:26) upset stomach trimethoprim [From Bactrim] Allergy (Intermediate, Verified 10/21/24 11:26) upset stomach pencillin Allergy (Severe, Uncoded 10/21/24 11:26) Anaphylaxis Medication List - Last Reconciled 10/21/24 by Naina Avendano PA-C famotidine (Pepcid AC) PO levothyroxine 88 mcg PO DAILY Tobacco use date assessed: 07/20/24 Dental Screening Dental Screen Date: 07/20/24 HPI UTI infection HPI Details Patient is a 54-year-old female who presents today with complaints of UTI like symptoms. She states that her symptoms really started to progress about 3 days ago with increased urinary frequency, urgency, dysuria. She was treated at the end of September for a UTI on Macrobid. She states that when she completed the antibiotic she overall was feeling better but she would still get some intermittent residual feelings that it was perhaps not fully gone. She says that she thought she could flush it with water up until 3 days ago. No fevers or chills. No flank pain. No nausea or vomiting. No abnormal vaginal discharge or bleeding. 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 Current occupational exposures/hazards: No Cognitive needs: No Hearing needs: No Vision needs: Yes Questionnaire Thrive Questionnaire Date Thrive assessed: 07/17/24 I am a: Patient What is your living situation today?: I have a steady place to live Within the past 12 months, did the food you bought not last and you didn't have the money to get more?: Never true Within the past 12 months, did you worry whether your food would run out before you got money to buy more?: Never true Do you have trouble paying for medicines?: No Do you have trouble getting transportation to medical appointments?: No Do you have trouble paying your heating and electricity bill?: No Do you have trouble taking care of your child, family member or friend?: No Do you have trouble with day-to-day activities such as bathing, preparing meals, shopping, managing finances, etc.?: No Are you currently unemployed and looking for a job?: No Are you interested in more education?: No Please select the resources that you would like help with: None Currently or been in a relationship where the following occur: No concerns reported THRIVE Score: 0 Physical exam (Primary Care) Vital Signs: Last Vital Signs Pulse 76 10/21/24 11:27 Resp 12 10/21/24 11:27 BP 114/74 10/21/24 11:27 Pulse Ox 97 10/21/24 11:27 Oxygen Delivery Method Room Air 10/21/24 11:27 BMI result Body Mass Index 32.4 Tobacco/Smoking Status: Tobacco use Status Tobacco use date assessed 07/20/24 10/21/24 11:29 Patient Tobacco Use Status Former Tobacco user 10/21/24 11:29 e-Cigarette/Vaping Use Never Used 10/21/24 11:29 Thrive Assessment: Date of Thrive Assessment Date Thrive assessed 07/17/24 10/21/24 11:29 Currently or been in a relationship where the following occur: No concerns reported Const Orientation/consciousness: patient oriented x3 HENMT Ears: hearing grossly normal bilaterally Neck Thyroid: Thyroid normal Lymphatic: no lymphadenopathy noted Resp Auscultation: clear to auscultation bilaterally Cardio Rate: regular rate Rhythm: regular rhythm Heart sounds: S1 normal heart sound present and S2 normal heart sound present GI Inspection: Yes normal to inspection Palpation (GI): Soft to palpation and Other GI palpation findings present (nontender, no cva tenderness) Auscultation: normoactive bowel sounds Rectal Exam - Female: deferred Skin General skin exam: no rashes or lesions noted Neuro General: patient oriented x3, gait normal and no focal motor deficits Coding Level of Care Code Est Pt Level 3 (86875) Diagnoses Urinary tract infection N39.0 Assessment & Plan Assessment & Plan (1) Urinary tract infection: Code(s): N39.0 - Urinary tract infection, site not specified Category: Medical Plan: We will start Cipro. We discussed risks and benefits and adverse effects of this medication. She will contact me if her symptoms fail to improve or if anything worsens or changes. Urine culture ordered. Orders: Orders Urine Culture Today N39.0 - Urinary tract infection, site not specified Medications: New ciprofloxacin HCl 500 mg PO BID 20 tabs 0RF 10 days
[2024-10-21 11:27] VITALS: BP 114/74; PULSE 76; RESP 12; O2SAT 97; BMI 32.4
--- OUTSIDE RECORDS SUMMARY | 2024-10-21 12:13 | XMS_ITS | Encounter Summary ---
Author Organization [employer] Address [address] [facility] 7 [place] [address] Care Team Providers Care Brickmason Contractor Name Role Phone Unavailable Primary Care Provider [...]
--- OUTSIDE RECORDS SUMMARY | 2024-10-21 12:13 | XMS_ITS | Encounter Summary ---
Author Organization [employer] Address [address] [facility] [address] [place] [address] Care Team Providers Care Product Architect Name Role Phone Unavailable Primary Care Provider [...]
--- OUTSIDE RECORDS SUMMARY | 2024-10-21 12:13 | XMS_ITS | Clinical Summary ---
Author Organization [facility] it Address [address] [place] [address] Care Team Providers Care Motion Picture Equipment Supervisor Name Role Phone Unavailable Primary Care Provider [...] (Priorix; M-M-R II) 12mo and older 02/25/2018 Usetrace SARS-CoV-2 COVID-19, mRNA, LNP-S, preservative free 05/17/2021,04/26/2021 [...] TEETH EXTRACTION OTHER SURGICAL HISTORY 09/24/11 PROCEDURE: MT SALPINGOSTOMY; COMMENT: tubal reanastomosis OTHER SURGICAL HISTORY [...] EDT Office Visit Obstetrics and Gynecology - [address] [address] Georgina Guidry, [facility] [address] [place] [address] Health Maintenance Due Date Last Done Comments [...] * Cervical Cancer Screening: HPV (08/16/2023) Pathologist [facility] Cervical Cancer Screening: HPV negative, abstracted [...] mammographic evidence of malignancy. 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
--- OUTSIDE RECORDS SUMMARY | 2024-10-21 12:13 | XMS_ITS | Encounter Summary ---
Author Organization [employer] Address [address] [facility] 7 [place] [address] Care Team Providers Care Flat Sheet Maker Name Role Phone Unavailable Primary Care Provider [...]
--- OUTSIDE RECORDS SUMMARY | 2024-10-21 12:13 | XMS_ITS | Clinical Summary ---
Author Organization [employer] Address [address] [place] [address] 7 [place] [address] Care Team Providers Care Retail Property Manager Name Role Phone Unavailable Primary Care [...]
--- OUTSIDE RECORDS SUMMARY | 2024-10-21 12:13 | XMS_ITS | Encounter Summary ---
Author Organization [employer] Address [address] [facility] 7 [place] [address] Care Team Providers Care Radio Recorder Name Role Phone Unavailable Primary Care Provider [...]
== END 2024-10-21 11:41 | disposition home or self-care (01) ==
LOC: HO.HMCFM 11:09
PROVIDERS: PCP Internal Medicine; Visit Provider Physician Assistant
DX: N39.0 Urinary tract infection, site not specified (principal)

== ENCOUNTER 2024-10-21 11:08 | Outpatient (REF) | payer OTHER, SELFPAY | END 2024-10-21 11:09 | disposition home or self-care (01) | LOC: HO.LAB 11:08 | PROVIDERS: PCP Internal Medicine; Visit Provider Physician Assistant | DX: N39.0 Urinary tract infection, site not specified (principal) | CPT/HCPCS: 87086; 87088; 87186 ==

== ENCOUNTER 2024-12-04 08:49 | Outpatient (REF) | payer OTHER, SELFPAY | END 2024-12-04 08:50 | disposition home or self-care (01) | LOC: HO.LAB 08:49 | PROVIDERS: PCP Internal Medicine; Visit Provider Nurse Practitioner Family | DX: N39.0 Urinary tract infection, site not specified (principal) | CPT/HCPCS: 87086 ==

== ENCOUNTER 2024-12-04 08:49 | Outpatient (AMB) | payer OTHER, SELFPAY ==
--- NOTE | 2024-12-04 08:55 | MHC.PC.OV ---
Vital Signs 12/04/24 09:00 Height 5 ft 2 in Weight 145 lb 2 oz BMI 26.5 BP 108/66 Blood Pressure Location Lt brachial Position Sitting Respiration 12 Pulse 78 Pulse Source Pulse Oximeter Temp 97.2 F Temp Source Oral Pulse Oximetry (%) 99 Oxygen Delivery Method Room Air Intake Visit Reasons: ER F/U [facility] / Due to a mini stroke Intake Note: ER follow up from [facility]. Weights And Measures Inspector Required: No Allergies sulfamethoxazole (From Bactrim) Allergy (Intermediate, Verified 12/04/24 09:07) upset stomach trimethoprim (From Bactrim) Allergy (Intermediate, Verified 12/04/24 09:07) upset stomach pencillin Allergy (Severe, Uncoded 12/04/24 09:02) Anaphylaxis Medication List - Last Reconciled 12/04/24 by WOLFGANG PappasP- aspirin 81 mg PO DAILY ciprofloxacin HCl 500 mg PO BID 10 days clopidogrel 75 mg PO DAILY famotidine (Pepcid AC) PO levothyroxine 88 mcg PO DAILY Tobacco use date assessed: 12/04/24 Dental Screening Dental Screen Date: 07/20/24 HPI HPI Comments History of Present Illness Details 54 y/o F with hypothyroid here today for ED FU Went to [facility] w/ stroke like sx 12/01/24 Elevated lipids noted otherwise normal imaging of head and neck DC home on plavix 75 mg and ASA 81 mg has filled and taking as directed MRI Brain last night, ordered by Stroke Clinic, Dr Cui -- has telehealth visit scheduled today to review Cont w/ word finding troubles HArd time focusing Describes visual haze Feels scared Saturday developed a headache Headache gone now In the last few months, headaches more often & feeling like in a fog getting out of way is hard. ; forgetful. She also c/o recurrent UTI and feels like has sx today UA done - see results below. Normal ROS - Neurological: Reports word-finding difficulty, headaches, fogginess. - General: Denies overall well-being; reports not feeling herself. - Cardiovascular: Denies chest pain. Reports stable blood pressure. Exam Awake alert NAD PERRLA EOMI RRR LS CTAB, dim Neuro: BOWENS x 4, normal strength, tone, reflexes, normal speech, no deficits noted Plan I discussed with the patient the diagnosis of a Transient Ischemic Attack (TIA) and the necessity for ongoing management through medication, specifically the addition of atorvastatin 80 mg daily to manage identified hyperlipidemia. The benefits of this include preventing future ischemic events through cholesterol management. I detailed the importance of MRI findings, which will be discussed with the stroke specialist. I advised on follow-up scheduling, potential referrals for speech therapy, and continual monitoring for symptoms. The patient understood the plan, including medications such as their possible side effects and the rationale for hospital and stroke clinic visits. Follow-up and reassessment were encouraged pending MRI results. 1. Transient Ischemic Attack (TIA) - Continued Plavix and aspirin. - Await MRI result discussion with the stroke clinic. 2. Hyperlipidemia - Start atorvastatin 80 mg daily. - Recommend lifestyle changes. 3. Headache - Observe for recurrence. - Monitor for neurological changes 4. UA negative, send for culture, she will be sent results via portal RTO 6 WEEKS TO FU WITH PCP, SOONER PRN Total time spent caring for the patient today was minutes. This includes time spent before the visit reviewing the chart, time spent during the visit, and time spent after the visit on documentation, reviewing laboratory results, diagnostic imaging, medications, performing a medically necessary evaluation, counseling on diagnoses, care coordination, ordering appropriate tests, ordering appropriate medications, review of tests performed by other providers, reporting test results with the patient, communication with other healthcare providers. 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 Current occupational exposures/hazards: No Cognitive needs: No Hearing needs: No Vision needs: Yes Questionnaire Thrive Questionnaire Date Thrive assessed: 12/04/24 I am a: Patient What is your living situation today?: I have a steady place to live Within the past 12 months, did the food you bought not last and you didn't have the money to get more?: Never true Within the past 12 months, did you worry whether your food would run out before you got money to buy more?: Never true Do you have trouble paying for medicines?: No Do you have trouble getting transportation to medical appointments?: No Do you have trouble paying your heating and electricity bill?: No Do you have trouble taking care of your child, family member or friend?: No Do you have trouble with day-to-day activities such as bathing, preparing meals, shopping, managing finances, etc.?: No Are you currently unemployed and looking for a job?: No Are you interested in more education?: No Please select the resources that you would like help with: None Currently or been in a relationship where the following occur: No concerns reported THRIVE Score: 0 Physical exam (Primary Care) Vital Signs: Last Vital Signs Temp 97.2 F 12/04/24 09:00 Pulse 78 12/04/24 09:00 Resp 12 12/04/24 09:00 BP 108/66 12/04/24 09:00 Pulse Ox 99 12/04/24 09:00 Oxygen Delivery Method Room Air 12/04/24 09:00 BMI result Body Mass Index 26.5 Tobacco/Smoking Status: Tobacco use Status Tobacco use date assessed 12/04/24 12/04/24 09:04 Patient Tobacco Use Status Former Tobacco user 12/04/24 08:56 e-Cigarette/Vaping Use Never Used 12/04/24 08:56 Thrive Assessment: Date of Thrive Assessment Date Thrive assessed 07/17/24 12/04/24 08:56 Currently or been in a relationship where the following occur: No concerns reported Results AMB Urinalysis, Automated UA Leukoctes 70 Mariam/uL Last Edit by Barbra Jama MA on 12/04/24 09:15 1+ Barbra Jama 12/04/24 09:15 UA Nitrite Negative Last Edit by Barbra Jama MA on 12/04/24 09:15 UA Urobilinogen 3.5 mg/dL Last Edit by Barbra Jama MA on 12/04/24 09:15 UA Protein 0 mg/dL Last Edit by Barbra Jama MA on 12/04/24 09:15 UA pH 6.0 Last Edit by Barbra Jama MA on 12/04/24 09:15 UA Blood 0 Rodney/uL Last Edit by Barbra Jama MA on 12/04/24 09:15 UA Specific Snowflake 1.015 Last Edit by Barbra Jama MA on 12/04/24 09:15 UA Ketone Negative Last Edit by Barbra Jama MA on 12/04/24 09:15 UA Bilirubin 0 mg/dL Last Edit by Barbra Jama MA on 12/04/24 09:15 UA Glucose 0 mg/dL Last Edit by Barbra Jama MA on 12/04/24 09:15 Coding Level of Care Code Est Pt Level 5 (78754) Complex EM visit Add On G2211 Diagnoses Hospital discharge follow-up Z09 Mixed hyperlipidemia E78.2 Hyperlipidemia type: mixed hyperlipidemia TIA (transient ischemic attack) G45.9 Recurrent UTI N39.0 Assessment & Plan Assessment & Plan (1) Hospital discharge follow-up: Code(s): Z09 - Encounter for follow-up examination after completed treatment for conditions other than malignant neoplasm (2) HLD (hyperlipidemia): Code(s): E78.5 - Hyperlipidemia, unspecified Category: Medical Qualifiers: Hyperlipidemia type: mixed hyperlipidemia Qualified Code(s): E78.2 - Mixed hyperlipidemia (3) TIA (transient ischemic attack): Onset Date: ~12/04/24 Code(s): G45.9 - Transient cerebral ischemic attack, unspecified Category: Medical (4) Recurrent UTI: Code(s): N39.0 - Urinary tract infection, site not specified Category: Medical Plan . Orders: Orders AMB Urinalysis Automated Today Z13.9 - Encounter for screening, unspecified Urine Culture Today N39.0 - Urinary tract infection, site not specified Medications: New atorvastatin (Lipitor) 80 mg PO BEDTIME 90 tabs 1RF Discontinued ciprofloxacin HCl Discontinued Reason: Patient Completed Course 500 mg PO BID 10 days 20 tabs 0RF Patient Instructions: - Take Plavix and aspirin daily as prescribed. - Begin atorvastatin 80 mg daily for cholesterol. - Watch for severe headache or new symptoms and seek care if they occur. - Follow up with stroke clinic for MRI results. - Use the patient portal for communication and results..
[2024-12-04 09:00] VITALS: BP 108/66; PULSE 78; RESP 12; TEMP 36.2; O2SAT 99; BMI 26.5
--- OUTSIDE RECORDS SUMMARY | 2024-12-04 09:06 | XMS_ITS | Clinical Summary ---
Author Organization [facility] [address] [facility] lding Address [address] [place] [address] Phone Care Team Providers Care Heavy Duty Mechanic Farm Equipment Name Role Phone Unavailable Primary Care Provider [...] CIDER VINEGAR OR Take by mouth Active estradioL-raleigh orgestreL (Climara Pro) 0.045-0.015 mg/[address] 1 patch on the skin 1 (one) time per week. 12 each 3 11/20/2024 Active Active Problems Problem Noted Date Diagnosed Date Endometrial polyp 11/01/2021 Hydrosalpinx 11/01/2021 Overview (08/12/2024): Seen on u/s 11/01/2021 Left ovarian cyst 11/01/2021 Overview (08/12/2024): Pelvic sono 11/01/21: 4.1 x 4.0 x 2.0 cm septated left ovarian cyst Acquired hypothyroidism 01/25/2021 Arthritis, hip 01/05/2019 Encounters Date Type Department Care Team Description 11/20/2024 2:30 PM EDT Office Visit Obstetrics and Gynecology [place] [address] [place] [address] Georgina Guidry CNM Encounter for gynecological examination without abnormal finding (Primary Dx) from Last 3 Months Immunizations Name Administration Dates Next Due Influenza Quadravalent, MDCK , 0.5ml, preservative free (Flucelvax) 6mo and older 02/18/2019,02/25/2018 Influenza trivalent, with pr eservative (Fluzone; Afluria) 6mo and older 03/12/2014,07/05/2009 MMR, measles mumps and rubel la Live (Priorix; M-M-R II) 12mo and older 02/25/2018 Pfizer SARS-CoV-2 COVID-19, mRNA, LNP-S, preservative free 05/17/2021,04/26/2021 [...] TEETH EXTRACTION OTHER SURGICAL HISTORY 09/24/11 PROCEDURE: SD SALPINGOSTOMY; COMMENT: tubal reanastomosis OTHER SURGICAL HISTORY [...] = 0.6 oz pur e alcohol) Comments No Sex and Gender Information Value Date Recorded Sex Assigned at Not on file Legal Sex Female 10:49 AM EST Gender Identity Not on file Sexual Orientation Not on file Obstetrics History Para Term AB IAB SAB Ectopic Multiple Livin g Live Births 3 2 2 1 2 2 Date Outcome GA Total Labor Labor/2nd/3rd Weight Sex Type Anes PTL Sandhya A1 A5 Name Clin AB 1991 Term M Vag-S pont Living 1993 Term F Vag-S pont Living Last Filed Vital Signs Vital Sign Reading Time Taken Comments Blood Pressure 114/77 11/20/2024 2:03 PM EDT Pulse 80 11/20/2024 2:03 PM EDT Temperature - - Respiratory Rate - - Oxygen Saturation - - Inhaled Oxygen Concentration - - Weight 77.6 kg (171 lb) 11/20/2024 2:03 PM EDT Height 157.5 cm (5' 2 ) 08/14/2023 2:20 PM EST Body Mass Index 31.28 08/14/2023 2:20 PM EST Plan of Treatment Health Maintenance Due Date [...] Results * Cervical Cancer Screening: HPV (08/16/2023) Cervical Cancer Screening: HPV negative, abstracted [facility] Provider [facility] Final Result * (ABNORMAL) Lipid panel (12/29/2020) Pathologist [facility] LDL/HDL Ratio 4 0 - 4 Triglycerides 210(A) 0 - 150 mg/dL Cholesterol 251(A) 0 - 200 mg/dL HDL 58 >=40 mg/dL LDL Cholesterol 151(A) 0 - 100 mg/dL Blood Venous blood specimen / Unknown [facility] Provider LAB BLOOD ORDERABLES Dara l Result * Colonoscopy (08/07/2018) Pathologist [facility] Colonoscopy normal, abstracted Anatomical Region Laterality Modality Other [facility] Provider [facility] Final Result * SCR MAMMO BI INCL [...] No mammographic evidence of malignancy. BI-RADS 1-negative [place] Renee CNM IMG XR PROCEDURES Fin al Result from Last 3 Months or Most Recently Relevant to Health Maintenance Insurance [facility] Advance Directives Documents on File Type Date Recorded Patient Counseling Department Chair Expl anation Health Care Decision (hx) 05/28/2022 HE ALTH CARE PROXY
== END 2024-12-04 09:30 | disposition home or self-care (01) ==
LOC: HO.HMCFM 08:50
PROVIDERS: PCP Internal Medicine; Visit Provider Nurse Practitioner Family
DX: E78.2 Mixed hyperlipidemia (principal); G45.9 Transient cerebral ischemic attack, unspecified; N39.0 Urinary tract infection, site not specified; Z09 Encounter for follow-up examination after completed treatment for conditions other than malignant neoplasm

== ENCOUNTER 2025-02-02 13:42 | Outpatient (AMB) | payer OTHER, SELFPAY ==
--- OUTSIDE RECORDS SUMMARY | 2025-01-27 23:59 | XMS_ITS | Continuity of Care Document ---
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 Name Role Phone Sloan CHARLES, Sissy Carter Primary Care Physician [phone] Encounter [facility] Date(s): 12/28/24 - 01/27/25 [facility] [address] [facility] 3rd Floor, [address] [place] [address]- Encounter Type: Triage Allergies, Adverse Reactions, Alerts Substance Criticality Severity Reaction Reaction Severity Status penicillin Hives Active Bactrim Active Immunizations Given and Recorded Vaccine Date Status Refusal Reason SARS-CoV-2 (COVID-19) mRNA BNT-162b2 vac 05/17/21 Recorded SARS-CoV-2 (COVID-19) mRNA BNT-162b2 vac 04/26/21 Recorded tetanus-diphtheria toxoids (Td) 12/29/20 Recorded influenza virus vaccine, inactivated 02/18/19 Petar rded influenza virus vaccine, inactivated 02/25/18 Petar rded influenza virus vaccine, inactivated 03/12/14 Petar rded influenza virus vaccine, inactivated 07/05/09 Petar rded Measles/Mumps/Rubella Virus Vaccine 02/25/18 Recor ded tetanus/diphtheria/pertussis, acel(Tdap) 05/14/11 Recorded Medications Allergy (Diphenhydramine HCl) 25 mg oral capsule 1 capsule = 25 mg, By Mouth, Every 6 hours, 0 Refills, Maintenance, 01/03/22 8:31:00 AM EDT, Partialfill upon patient request if the prescription is for a schedule II opioid drug. Start Date: 01/03/22 Status: Ordered Repeat number: 1 aspirin 81 mg oral delayed release tablet 81 mg, 1, tablet, By Mouth, Daily, # 30 tablet, Refills 0, Tot. Refills 0, Maintenance, 12/01/24 7:58:00 PM EDT, Route to Pharmacy Electronically, [facility]/pharmacy #[id number], Partial fill upon patient requestif the prescription is for a schedule II opioid drug., 163, cm, 12/01/24 18:25:00 EDT, Height, 77.5, kg, 12/01/24 18:25:00 EDT, Dry Weight Start Date: 12/01/24 Status: Ordered Quantity: 30.0 Unit: tablet Repeat number: 1 Azithromycin 5 Day Dose Pack 250 mg oral tablet 1 pack/packet, By Mouth, Once, as directed on package labeling, # 6 tablet, 0 Refills, Soft Stop, 07/22/23 4:40:00 PM EST, Tablet, [facility]/pharmacy #[id number], Partial fill upon patient request if the prescription is for a schedule II opioid drug., 161, cm, 07/19/23 8:57:00 EST, Height, 73, kg, 09/06/21 14:19:00 EDT, Dry Weight Start Date: 07/22/23 Status: Ordered Quantity: 6.0 Unit: tablet Repeat number: 1 clopidogrel 75 mg oral tablet 75 mg, 1, tablet, By Mouth, Daily, # 30 tablet, Refills 0, Tot. Refills 0, Maintenance, 12/01/24 7:59:00 PM EDT, Route to Pharmacy Electronically, [facility]/pharmacy #[id number], Partial fill upon patient requestif the prescription is for a schedule II opioid drug., 163, cm, 12/01/24 18:25:00 EDT, Height, 77.5, kg, 12/01/24 18:25:00 EDT, Dry Weight Start Date: 12/01/24 Status: Ordered Quantity: 30.0 Unit: tablet Repeat number: 1 cyclobenzaprine 10 mg oral tablet 10 mg, 1, tablet, By Mouth, 3 times a day, PRN, # 12 tablet, Refills 0, Tot. Refills 0, Maintenance, for spasm, 12/18/24 10:16:00 AM EDT, Route to Pharmacy Electronically, [facility]/pharmacy #[id number], Partial fill upon patient request if the prescription is for a schedule II opioid drug., 159, cm, 12/18/24 4:58:00 EDT, Height, 73, kg, 12/18/24 4:58:00 EDT, Dry Weight Start Date: 12/18/24 Status: Ordered Quantity: 12.0 Unit: tablet Repeat number: 1 levothyroxine 0.088 mg oral tablet 1 tablet, By Mouth, Daily, # 90 tablet, 0 Refills, Maintenance, 11/14/23 11:55:00 AM EDT, [facility]/pharmacy #[id number], 161, cm, 07/19/23 8:57:00 EST, Height Start Date: 11/14/23 Status: Ordered Quantity: 90.0 Unit: tablet Repeat number: 1 lidocaine 5% topical film 1 patch, Topically, Daily, PRN Pain , Mild, remove after 12 hours, # 30 patch, 0 Refills, Maintenance, 12/18/24 10:16:00 AM EDT, Film, [facility]/pharmacy #[id number], Partial fill upon patient request if the prescription is for a schedule II opioid drug., 1 patch Topically Daily,PRN:Pain , Mild,Instr:remove after 12 hours, 159, cm, 12/18/24 4:58:00 EDT, Height, 73, kg, 12/18/24 4:58:00 EDT, Dry Weight Start Date: 12/18/24 Status: Ordered Quantity: 30.0 Unit: patch Repeat number: 1 Misc Rx Apple Cider Vinegar, Refills 0, Maintenance, 01/03/22 8:31:00 AM EDT, Supply Start Date: 01/03/22 Status: Ordered Repeat number: 1 Osteo Bi-Flex 0 Refills, Maintenance, 08/13/22 8:28:00 AM EST, Partial fill upon patient request if the prescription is for a schedule II opioid drug. Start Date: 08/13/22 Status: Ordered Repeat number: 1 traZODone 50 mg oral tablet 1, tablet, By Mouth, Daily at bedtime, PRN, INSOMNIA., # 90 tablet, Refills 1, Maintenance, NEEDED, 08/08/23 7:09:00 PM EST, Route to Pharmacy Electronically, [id number], 161, cm, 07/19/23 8:57:00 EST, Height, 73, kg, 09/06/21 14:19:00 EDT, Dry Weight Start Date: 08/08/23 Status: Ordered Quantity: 90.0 Unit: tablet Repeat number: 1 Problem List Condition Confirmation Course Effective Dates Status H ealth Status Informant Allergy to penicillin Confirmed Active Arthritis Confirmed Active Headache Confirmed Active Depression Confirmed Active Body aches Confirmed Active High cholesterol Confirmed Active Osteoarthritis of left hip Confirmed Active Osteoarthritis of right hip Confirmed Active Seasonal allergies Confirmed Active Sore throat Confirmed Active Acute streptococcal pharyngitis Confirmed Active Social History Social History Type Response Smoking Status Former smoker, quit more than 30 days ago; Type: Cigarettes; Tobacco use times per day: 1 pack a day; Number of years: 15; Started at age: 21; Stopped at age: 36; entered on: 01/03/22 Sex Sex Representation Female (finding) Patient Care team information Care Team Personnel Name: Sissy Lisa MD Position: Reference Physician Member Role: PCP Address: [address] [place] [address] Telecom: Care Team Related Persons Name: CONNIE MARS Name: CONNEI MARS Insurance Providers Guarantor name: VINAYTRINO JACOBSON [facility] Information #: 1 Payer: [facility] FF NON BHP HMO P Payer Identifier: NA Member Number: [id number] Group Number: [id number] Subscriber Identifier: [id number] Relationship to Subscriber: Spouse Coverage Type: Other Private Insurance Coverage Verification Date: NA Telecom: NA Address: Health Plan Information #: 2 Payer: [facility] HMO [employer] Payer Identifier: NA Member Number: [id number] Group Number: [id number] Subscriber Identifier: [id number] Relationship to Subscriber: self Coverage Type: NA Coverage Verification Date: NA Telecom: NA Address:
[2025-02-02 13:49] VITALS: BP 108/66; PULSE 90; RESP 12; O2SAT 97; BMI 28.9
--- NOTE | 2025-02-02 13:49 | MHC.PC.OV ---
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 TIA Intake Note: Six month follow up TIA Allergies sulfamethoxazole (From Bactrim) Allergy (Intermediate, Verified 02/02/25 13:50) upset stomach trimethoprim (From Bactrim) Allergy (Intermediate, Verified 02/02/25 13:50) upset stomach pencillin Allergy (Severe, Uncoded 02/02/25 13:50) Anaphylaxis Tobacco use date assessed: 12/04/24 Dental Screening Dental Screen Date: 07/20/24 HPI HPI Comments History of Present Illness Details The patient is a 54 year old female with a past medical history of hypothyroidism, hyperlipidemia, depression, arthritis, seizure, presenting for follow up Seen at the end of December by colleague for hospital follow up Went to [facility] w/ stroke like sx 12/01/24-Elevated lipids noted otherwise normal imaging of head and neck. DC home on plavix 75 mg and ASA 81 mg has filled and taking as directed Placed on statin therapy. She followed up with stroke clinic thereafter and MRI was reviewed. MRI without evidence of stroke but still some concern for CVA versus global transient amnesia. Echo with bubble study recommended to r/o PFO and hypercoaguable work up. Hypothyroid-On levothyroxine 88mcg daily. MSK-Bilateral hip pain. R>L. More than one year. Chronic left foot pain. Recent increased shoulder and neck pain. she has been doing a lot of painting. 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 Some right sided sciatica History of uterine polyp, ovarian cysts and PMB. Medication did not stop bleeding. Ended up getting transvaginal polypectomy/ablation of poly then bilateral salpingoopherectomy. Insomnia-on trazodone Preventive Mammo-09/[address] Turcios-rohit 10 year repeat. ROS see HPI PHYSICAL EXAM: GENERAL: Alert and oriented x 3. NAD EYES: EOMI. Anicteric. HENT: Moist mucous membranes. No scleral icterus. No cervical lymphadenopathy. LUNGS: Clear to auscultation bilaterally. CARDIOVASCULAR: Regular rate and rhythm. No murmur. No JVD. ABDOMEN: Soft, non-tender +bs EXTREMITIES: No edema. Non-tender. SKIN: No rashes or lesions. Warm. NEUROLOGIC: No focal neurological deficits. CN II-XII grossly intact PSYCHIATRIC: Cooperative. 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 Current occupational exposures/hazards: No Cognitive needs: No Hearing needs: No Vision needs: Yes Questionnaire Thrive Questionnaire Date Thrive assessed: 07/17/24 I am a: Patient What is your living situation today?: I have a steady place to live Within the past 12 months, did the food you bought not last and you didn't have the money to get more?: Never true Within the past 12 months, did you worry whether your food would run out before you got money to buy more?: Never true Do you have trouble paying for medicines?: No Do you have trouble getting transportation to medical appointments?: No Do you have trouble paying your heating and electricity bill?: No Do you have trouble taking care of your child, family member or friend?: No Do you have trouble with day-to-day activities such as bathing, preparing meals, shopping, managing finances, etc.?: No Are you currently unemployed and looking for a job?: No Are you interested in more education?: No Please select the resources that you would like help with: None Currently or been in a relationship where the following occur: No concerns reported THRIVE Score: 0 Physical exam (Primary Care) Vital Signs: Last Vital Signs Pulse 90 02/02/25 13:49 Resp 12 02/02/25 13:49 BP 108/66 02/02/25 13:49 Pulse Ox 97 02/02/25 13:49 Oxygen Delivery Method Room Air 02/02/25 13:49 BMI result Body Mass Index 28.9 Tobacco/Smoking Status: Tobacco use Status Tobacco use date assessed 12/04/24 02/02/25 13:54 Patient Tobacco Use Status Former Tobacco user 02/02/25 13:54 e-Cigarette/Vaping Use Never Used 02/02/25 13:54 Thrive Assessment: Date of Thrive Assessment Date Thrive assessed 07/17/24 02/02/25 13:54 Currently or been in a relationship where the following occur: No concerns reported Coding Level of Care Code Est Pt Level 4 (55034) Complex EM visit Add On G2211 Diagnoses TIA (transient ischemic attack) G45.9 Easy bruising R23.3 Hypothyroidism, unspecified type E03.9 Hypothyroidism type: unspecified Polyarthralgia M25.50 Assessment & Plan Assessment & Plan (1) TIA (transient ischemic attack): Onset Date: ~12/04/24 Code(s): G45.9 - Transient cerebral ischemic attack, unspecified Category: Medical (2) Easy bruising: Code(s): R23.3 - Spontaneous ecchymoses Category: Medical (3) Hypothyroid: Code(s): E03.9 - Hypothyroidism, unspecified Category: Medical Qualifiers: Hypothyroidism type: unspecified Qualified Code(s): E03.9 - Hypothyroidism, unspecified (4) Polyarthralgia: Code(s): M25.50 - Pain in unspecified joint Category: Medical Plan 54 year old for follow up Episode of transient global amnesia versus TIA. Echo with bubble ordered. Labs ordered Continue follow up neurology. She has comopleted recommended plavix course Hypothyroid-check TSH Recommend continuing statin Orders: Orders Pathologist Review - CBC 02/03/25 G45.9 - Transient cerebral ischemic attack, unspecified, R23.3 - Spontaneous ecchymoses Lupus Anticoagulant Panel 02/03/25 G45.9 - Transient cerebral ischemic attack, unspecified, R23.3 - Spontaneous ecchymoses Beta-2 Glycoprotein Antibody 02/03/25 G45.9 - Transient cerebral ischemic attack, unspecified, R23.3 - Spontaneous ecchymoses Lipid Panel 3 Months E78.2 - Mixed hyperlipidemia LYDIA Reflex Titer and Pattern 02/03/25 R53.83 - Other fatigue Complete Blood Count Auto Diff 02/03/25 G45.9 - Transient cerebral ischemic attack, unspecified, R23.3 - Spontaneous ecchymoses Cardiolipin Antibodies 02/03/25 G45.9 - Transient cerebral ischemic attack, unspecified, R23.3 - Spontaneous ecchymoses TSH reflex Free T4 02/03/25 E03.9 - Hypothyroidism, unspecified Lyme IgG/IgM w/reflex to WB 02/03/25 R53.83 - Other fatigue Medications: Julian Villegas (semaglutide (weight loss)) administer weeks 1 through 4 of therapy 0.25 mg (0.5 mL) subcut QWEEK 2 mL 0RF NS E66.3 - Overweight, E78.2 - Mixed hyperlipidemia
--- OUTSIDE RECORDS SUMMARY | 2025-02-02 14:40 | XMS_ITS | Clinical Summary ---
Author Organization [facility] [address] [facility] l[address] Address [address] [place] [address] Phone Care Team Providers Care Corn Grower Name Role Phone Unavailable Primary Care Provider [...] PM EDT Office Visit Obstetrics and Gynecology [place] [address] [place] [address] Georgina Guidry CNM Encounter for [...] TEETH EXTRACTION OTHER SURGICAL HISTORY 09/24/11 PROCEDURE: [place] SALPINGOSTOMY; COMMENT: tubal reanastomosis OTHER SURGICAL HISTORY [...] Sexual Orientation Not on file Obstetrics History * This document contains information received from the source organization and may not represent a complete record from that organization. Para Term AB IAB SAB Ectopic Multiple Livin g Live Births 3 2 2 2 2 Date Outcome GA Total Labor Labor/2nd/3rd Weight Sex Type Anes PTL Sandhya A1 A5 Name Clin 1991 Term M Vag-S pont Living 1993 [...] 2020 Breast Cancer Screening 07/02/2020 07/02/2018, 06/25 HIV Screening 05/19/2022 Hepatitis C Screening 05/19/2022 Social Influencers of Health Screening 05/19/2022 COVID-19 Vaccine ( season) 2024 05/17/2021, 04/26/2021 Depression Screening 06/10/2024 Influenza Vaccine (#1) 2025 9, 02/25/2018, 03/12/2014, Additional history exists Cholesterol Screening [...] Procedure Name Priority Date/Time Associated Diagnosis Comments HM HPV Routine 08/16/2023 LIPID PANEL Routine 12/29/2020 COLONOSCOPY Routine 08/07/2018 SCR MAMMO BI INCL CAD Routine 07/02/2018 3:39 PM EST Encounter for screening mammogram for malignant neoplasm of breast from Last 3 Months or Most Recently Relevant to Health Maintenance Results * Hm Cervical Cancer Screening: HPV (08/16/2023) Cervical Cancer Screening: HPV negative, abstracted [facility] Final Result * (ABNORMAL) Lipid panel (12/29/2020) Pathologist [facility] [place] LDL/HDL Ratio 4 0 - 4 Triglycerides 210(A) 0 - 150 mg/dL Cholesterol 251(A) 0 - 200 mg/dL HDL 58 >=40 mg/dL LDL Cholesterol 151(A) 0 - 100 mg/dL Blood Venous blood specimen / Unknown [facility] Provider LAB BLOOD ORDERABLES Dara l Result * Colonoscopy (08/07/2018) Pathologist [facility] Colonoscopy normal, abstracted Anatomical Region Laterality Modality Other [facility] Provider [facility] Final Result * SCR MAMMO BI INCL [...] Most Recently Relevant to Health Maintenance Insurance [facility] [id number] [place] [address] Advance Directives Documents on File Type Date Recorded 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
--- OUTSIDE RECORDS SUMMARY | 2025-02-02 14:40 | XMS_ITS | Patient Health Record ---
Author Organization [facility] Address [address] [place] [address] Care Team Providers Care Stump Blower Name Role Phone Sharon Brown MD Primary Care Provider Vinh Stanford Unavailable [phone] Allergies Allergen (clinical drug ingredient) Drug/Non Drug Allergy documented on EMR Reaction Allergy Type Onset Date Status amoxicillin Amoxicillin anaphylaxis, throat swells, hives Drug Allergy Active sulfamethoxazole / trimethoprim Bactrim vomiting Drug Allergy Active Reason For Referral No Information Medications Medication SIG (Take, Route, Frequency, Duration) Notes Start Date End Date Status Night Splint AFO - L1930 as directed 10/29/2019 Active Melatonin PRN Active Vitamin D Active Estroven Active PriLOSEC Active Allergy Active Cyclobenzaprine HCl 10 MG 1 tablet at be dtime as needed Orally Once a day; Duration: 30 day(s) Not-Taking Social History Tobacco Use: Social History Observation Description Date Details (start date - stop date) Former Smoker NA - NA Tobacco Use/Smoking Question Answer Notes Are you a: former smoker When did you stop smoking? 2002 Alcohol Screen Question Answer Notes Did you have a drink contain ing alcohol in the past year? Yes How often did you have a dri nk containing alcohol in the past year? Monthly or less (1 point) Points 1 Interpretation Negative Tobacco use other than smoking: Question Answer Notes Are you an other tobacco user? No Problems Problem Type SNOMED Code ICD Code Onset Dates Problem Status W/U Status Risk Notes Problem Plantar fascial fibromatosis (20087839) Plantar fascial fibromatosis (M72.2) Active confirmed Improved ,Unresol urmila Plan Of Treatment No Information Insurance Providers Payer Name Payer Address Payer Phone Subscriber Number Group Number Insured Name Patient Relationship to Insured Coverage Start Date Coverage End Date [facility] [address] [place] [address] [id number] Darya Gomez Self - patient is the insured Medical (General) History Medical History History ICD Code Arthritis of hip - B/L Depression Scarlet fever chronic sinusitis Warts Measles Chicken pox Surgical History Surgery Date(Month/Year) D&C ear surgery knee surgery tubal ligation wisdom teeth extraction Tubal reanastomosis 09/24/11 Hospitalization History Reason Date(Month/Year) Xray Left Foot [facility] 10/06/19
--- OUTSIDE RECORDS SUMMARY | 2025-02-02 14:40 | XMS_ITS | Clinical Summary ---
Author Organization [employer] Address [address] [place] [address] 7 [place] [address] Care Team Providers Care Biostatistics Manager Name Role Phone Unavailable Primary Care [...] 1970 FIT 1970 FOBT 1970 Sigmoidoscopy 1970 Disability Screening 1970 Alcohol/Substance Use Screening 1982 Tobacco Screening [...] season) 2024 05/17/2021, 04/26/2021 Influenza Vaccine (#1) 2025 9, 02/25/2018, 03/12/2014, Additional history exists DTaP/Tdap/Td [...]
--- OUTSIDE RECORDS SUMMARY | 2025-02-02 14:40 | XMS_ITS | Encounter Summary ---
Author Organization [employer] Address [address] [facility] 7 [place] [address] Care Team Providers Care Stem Frazer Name Role Phone Unavailable Primary Care Provider [...]
--- OUTSIDE RECORDS SUMMARY | 2025-02-02 14:40 | XMS_ITS | Encounter Summary ---
Author Organization [employer] Address [address] [facility] [address] [place] [address] Care Team Providers Care Manager Universal Name Role Phone Unavailable Primary Care Provider [...]
--- OUTSIDE RECORDS SUMMARY | 2025-02-02 14:40 | XMS_ITS | Encounter Summary ---
Author Organization [employer] Address [address] [facility] [address] [place] [address] Care Team Providers Care Large Engine Assembler Name Role Phone Unavailable Primary Care Provider [...]
--- OUTSIDE RECORDS SUMMARY | 2025-02-02 14:40 | XMS_ITS | Encounter Summary ---
Author Organization [employer] Address [address] [facility] [address] [place] [address] Care Team Providers Care Museum Guide Name Role Phone Unavailable Primary Care Provider [...]
== END 2025-02-02 14:25 | disposition home or self-care (01) ==
LOC: HO.HMCFM 13:43
PROVIDERS: PCP Internal Medicine; Visit Provider Internal Medicine
DX: G45.9 Transient cerebral ischemic attack, unspecified (principal); R23.3 Spontaneous ecchymoses; E03.9 Hypothyroidism, unspecified; M25.50 Pain in unspecified joint

== ENCOUNTER → 2025-02-03 10:41 | Outpatient (REF) | payer OTHER, SELFPAY ==
--- NOTE | 2025-02-03 10:48 | CA_ITS ---
Transthoracic Echocardiogram Patient (Last, First, Middle): Darya Gomez L Gender: F Date of : 1970 Age: 54 Procedure Date: 02/03/2025 Procedure Type: Transthoracic Echocardiogram Location: OP Height: 162.56 cm Weight: 76.2 kg BSA: 1.82 m2 Heart Rate: 70 bpm BP: 108 / 66 mmHg Supply And Distribution Manager: SB Referring MD: Sissy Lisa MD Symptoms: G45.9 - Transient cerebral ischemic attack, unspecified Study Quality: Adequate ECG Rhythm: Sinus Conclusions: - The left ventricular systolic function is normal. The calculated ejection fraction is 61% by biplane method - No obvious valvular pathology seen on this study. - There is no evidence of interatrial shunt by agitated saline.(during rest and valsalva). Findings Left Ventricle Normal left ventricular cavity size. There is normal left ventricular wall thickness. The left ventricular systolic function is normal. The calculated ejection fraction is 61% by biplane method. There is no evidence of regional wall motion abnormalities. Diastolic function is normal for age. Right Ventricle Normal right ventricular cavity size. There is low normal right ventricular systolic function. Atria Both atria are normal in size. There is no evidence of interatrial shunt by agitated saline. Aortic Valve There is a normal trileaflet aortic valve. There is no aortic valve stenosis. There is no aortic valve regurgitation. Mitral Valve The mitral valve appears normal. There is no mitral valve regurgitation. There is no mitral valve stenosis. Pulmonic Valve The pulmonic valve is likely normal. Tricuspid Valve There is trace tricuspid valve regurgitation. There is no evidence of pulmonary hypertension. Great Vessels The asc aorta and aortic arch are normal in size. Venous The inferior vena cava is normal in size and collapses greater than 50% with inspiration. Pericardium/Pleural There is no evidence of pericardial effusion. Prior Study Comparison No prior study available for comparison. Recommendations, Care & Conclusions No obvious valvular pathology seen on this study. Measurements 2D Linear Measurements IVSd: 0.69 0.6-0.9/0.6-1.0 cm LVIDd: 4.75 3.9-5.3/4.2-5.9 cm LVIDd Index: 2.61 2.4-3.2/2.2-3.1 cm/m2 LVIDs: 3.22 2.0-3.6 cm LVPWd: 0.63 0.7-1.1 cm LA Diam: 3.10 2.7-3.8/3.0-4.0 cm LAIDs Index: 1.70 1.5-2.3 cm/m2 LV Mass: 121.02 67-162/88-224 g LV Mass Index: 66.49 43-95/49-115 g/m2 LVOT Diam: 2.10 3.0+(-)1.3 cm 2D Systolic Function EF 4C: 57.10 >55% EF 2C: 63.50 >55% EF BiP: 61.30 >55% Mitral Valve MV Pk E: 0.71 MV PK A: 0.78 MV Decel Time: 177.00 E/A: 0.90 E'Lateral: 10.20 E'Medial: 7.51 E/E' Med: 9.40 E/E' Lat: 6.90 PHT: 52.00 MVA PHT: 4.23 Decel [place]: 3.99 Aortic Valve AoV Pk Justin: 0.95 AoV Pk Grad: 4.00 VIKY: 2.80 LVOT LVOT Pk Justin: 0.73 LVOT Mn Justin: 0.54 LVOT VTI: 0.16 LVOT Pk Grad: 2.00 LVOT Mn Grad: 1.00 LVOT Diam: 2.10 LVOT Area: 3.46 Diastolic Function MV Pk E: 0.71 MV Pk A: 0.78 E/A: 0.90 E'Medial: 7.51 E/E' Med: 9.40 E' Laterial: 10.20 E/E' Lat: 6.90 Right Ventricle TAPSE (mm): 22.80 TVS' Justin: 9.68 Tricuspid Valve RA Press: 3.00 Great Vessels Aorta Sinus of Valsalva: 2.70 2.0-3.5 cm Ao Asc: 2.40 2.1-3.4 cm Ao Arch: 2.00 Pulmonary Veins Pulm Vein S/D 1.20 Pulmonary Valve PV Pk Justin: 0.57 Peak PV Grad: 1.00 Updated in Other Vendor System with Status of Final Efe Sharpe MD electronically signed on 02/04/2025 11:42:13 AM with status of Final
[2025-02-03 11:05] LABS: MANUAL DIFF FLAG NO
--- OUTSIDE RECORDS SUMMARY | 2025-02-03 11:35 | XMS_ITS | Clinical Summary ---
Author Organization [facility] [address] [facility] l[address] Address [address] [place] [address] Phone Care Team Providers Care Ethics Manager Name Role Phone Unavailable Primary Care [...] PM EDT Office Visit Obstetrics and Gynecology [place] [place] [address] Georgina Guidry CNM Encounter for [...] TEETH EXTRACTION OTHER SURGICAL HISTORY 09/24/11 PROCEDURE: [place] SALPINGOSTOMY; COMMENT: tubal reanastomosis OTHER SURGICAL HISTORY [...] (08/16/2023) Cervical Cancer Screening: HPV negative, abstracted [facility] Provider [facility] Final Result * (ABNORMAL) Lipid panel (12/29/2020) Pathologist [facility] LDL/HDL Ratio 4 0 - 4 Triglycerides 210(A) 0 - 150 mg/dL Cholesterol 251(A) 0 - 200 mg/dL HDL 58 >=40 mg/dL LDL Cholesterol 151(A) 0 - 100 mg/dL Blood Venous blood specimen / Unknown [facility] Provider LAB BLOOD ORDERABLES Dara l Result * Colonoscopy (08/07/2018) Pathologist [facility] Colonoscopy normal, abstracted Anatomical Region Laterality Modality Other [facility] Provider [facility] Final Result * SCR MAMMO BI [...] Most Recently Relevant to Health Maintenance Insurance [facility] [address] [place] [address] Advance Directives Documents on File Type Date Recorded Patient Supervisor Bit And Shank Department Expl anation Health Care Decision (hx) 05/28/2022 HE [facility]TH CARE PROXY
--- OUTSIDE RECORDS SUMMARY | 2025-02-03 11:35 | XMS_ITS | Encounter Summary ---
Author Organization [employer] Address [address] [facility] 7 [place] [address] Care Team Providers Care Prescription Clerk Name Role Phone Unavailable Primary Care Provider [...]
--- OUTSIDE RECORDS SUMMARY | 2025-02-03 11:35 | XMS_ITS | Encounter Summary ---
Author Organization [employer] Address [address] [facility] [address] [place] [address] Care Team Providers Care Computer Graphics Illustrator Name Role Phone Unavailable Primary Care Provider [...]
--- OUTSIDE RECORDS SUMMARY | 2025-02-03 11:35 | XMS_ITS | Clinical Summary ---
Author Organization [employer] Address [address] [place] [address] [address] [place] [address] Care Team Providers Care Chief Radiologic Technologist Name Role Phone Unavailable Primary Care Provider [...]
--- OUTSIDE RECORDS SUMMARY | 2025-02-03 11:35 | XMS_ITS | Encounter Summary ---
Author Organization [employer] Address [address] [facility] 7 [place] [address] Care Team Providers Care Call Center Agent Name Role Phone Unavailable Primary Care Provider [...]
--- OUTSIDE RECORDS SUMMARY | 2025-02-03 11:35 | XMS_ITS | Encounter Summary ---
Author Organization [employer] Address [address] [facility] [address] [place] [address] Care Team Providers Care Spray Applicator Name Role Phone Unavailable Primary Care Provider [...]
--- OUTSIDE RECORDS SUMMARY | 2025-02-03 11:36 | XMS_ITS | Patient Health Record ---
Author Organization [facility] Address [address] [place] [address] Care Team Providers Care Day Treatment Clinician/Art Therapist Name Role Phone Sharon Brown MD Primary Care Provider Vinh Stanford Unavailable [phone] Allergies Allergen (clinical drug ingredient) Drug/Non Drug [...] Status Risk Notes Problem Plantar fascial fibromatosis ([id number]) Plantar fascial fibromatosis (M72.2) Active confirmed Improved ,Unresol urmila Plan Of Treatment No Information Insurance Providers Payer Name Payer Address Payer Phone Subscriber Number Group Number Insured Name Patient Relationship to Insured Coverage Start Date Coverage End Date [facility] [address] [place] [address] [id number] Darya Gomez Self - patient is the insured Medical (General) History Medical History History ICD Code Arthritis of hip - B/L Depression Scarlet fever chronic sinusitis Warts Measles Chicken pox Surgical History Surgery Date(Month/Year) D&C ear surgery knee surgery tubal ligation wisdom teeth extraction Tubal reanastomosis 09/24/11 Hospitalization History Reason Date(Month/Year) Xray Left Foot [facility] 10/06/19
[2025-02-03 12:28] LABS: Hematocrit 41.4 % (37.0-47.0); Hemoglobin 13.3 g/dl (12.0-16.0); Imm Gran Abs Auto 0.01 X10*3/uL (0.00-0.03); Imm Gran Pct Auto 0.2 % (0.0-0.4); Lymphocytes Absolute Auto 2.4 X10*3/uL (1.2-4.9); Mean Corpuscular HGB Conc 32.1 g/dl (31.0-35.0); Mean Corpuscular Hemoglobin 30.4 pg (27.0-33.0); Mean Corpuscular Volume 94.5 fL (80.0-98.0); NRBC Abs Auto 0.000 X10*3/uL (0.0-0.012); NRBC Pct Auto 0.0 /100WBC (0.0-0.2); Platelet Count 266 X10*3/uL (160-400); Red Blood Count 4.38 X10*6/uL (4.20-5.50); White Blood Count 4.4 X10*3/uL (4.8-10.8)
[2025-02-03 13:39] LABS: Free T4 (Free Thyroxine) 1.25 ng/dL (0.71-1.85)
[2025-02-04 18:33] LABS: Lyme Abs Screen <0.90 index
[2025-02-07 13:57] LABS: Anti Nuclear Antibody Screen NEGATIVE (NEGATIVE)
[2025-02-09 14:32] LABS: Thrombin Clotting Time TPN
== END ==
LOC: HO.CARD 10:41
PROVIDERS: PCP Internal Medicine; Visit Provider Internal Medicine
DX: G45.9 Transient cerebral ischemic attack, unspecified (principal); R23.3 Spontaneous ecchymoses; R53.83 Other fatigue; E03.9 Hypothyroidism, unspecified; Z01.84 Encounter for antibody response examination
CPT/HCPCS: 84439; 84443; 85025; 85597; 85598; 85613; 85670; 85730; 86038; 86146; 86147; 86617; 86618; 93306

== ENCOUNTER → 2025-02-03 10:48 | Outpatient (BNV) | payer OTHER, SELFPAY | PROVIDERS: PCP Internal Medicine; Visit Provider Internal Medicine | DX: G45.9 Transient cerebral ischemic attack, unspecified (principal) | CPT/HCPCS: 93306 ==

== ENCOUNTER 2025-03-31 08:36 | Outpatient (AMB) | payer OTHER, SELFPAY ==
[2025-03-31 08:38] VITALS: BP 110/80; PULSE 81; TEMP 37; O2SAT 97; BMI 29.2
--- NOTE | 2025-03-31 08:38 | MHC.OFFWIV ---
Intake Vital Signs 03/31/25 08:38 Height 5 ft 4 in Weight 170 lb BMI 29.2 BP 110/80 Blood Pressure Location Lt brachial Position Sitting Pulse 81 Pulse Source Pulse Oximeter Temp 98.6 F Temp Source Oral Pulse Oximetry (%) 97 Oxygen Delivery Method Room Air Intake Visit Reasons: EP eye infection? very swollen under eye Intake Note: EP has right eye irritation since last week. below the eye a swilling appeared yesterday. The eye hurts and has some secretion and she felt something inside the eye. Patient Tobacco Use Status: Former Tobacco user Allergies sulfamethoxazole (From Bactrim) Allergy (Intermediate, Verified 03/31/25 08:49) upset stomach trimethoprim (From Bactrim) Allergy (Intermediate, Verified 03/31/25 08:49) upset stomach pencillin Allergy (Severe, Uncoded 02/02/25 13:50) Anaphylaxis Medication List - Last Reconciled 03/31/25 by Holly Glynn MD aspirin 81 mg PO DAILY atorvastatin (Lipitor) 80 mg PO BEDTIME famotidine (Pepcid AC) PO levothyroxine 88 mcg PO DAILY Do you need a note to return to daycare/school/sports/work: Yes HPI HPI Comments History of Present Illness Details Patient was informed and verbally consented to the use of an ambient scribe for clinic note documentation during the visit. History of Present Illness The patient is a 54-year-old female presenting with swelling and irritation of the right lower eyelid Right lower eyelid pain: - The patient reported noticing swelling in the right eyelid starting last week, initially thought to be a stye. - Applied mineral oil/petroleum-based stye cream alongside warm compresses which initially improved symptoms. - Worsening of symptoms noted from Saturday of the current week with increased pain and swelling of the right lower eyelid - No changes in vision. Denies any pain in the eye. - Does not wear contact lenses - Denied systemic symptoms such as fever or chills. - Patient has a significant allergic history to penicillins (anaphylactic reaction) and Bactrim (causes gastrointestinal upset). Review of Systems - Ophthalmologic: Reports swelling and pain of the right lower eyelid, denies vision changes, pain in eye - Constitutional: Denies fever or chills. Physical Exam General Appearance: Normal appearance, well developed. No acute distress Eyes: PEERLA; EOM intact. Erythema and swelling noted of the right lower eyelid with tenderness to palpation. Internal hordoleum noted. Minimal conjunctival injection noted. No drainage or mucopurulent discharge. Head: Normocephalic, atraumatic Musculoskeletal: Moving all extremities spontaneously and against gravity Mental Status: Alert and Oriented x 3 Psychiatric: Normal mood. Normal affect. 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 Preseptal Cellulitis - Treatment will be with levofloxacin, considering the patient's antibiotic allergies, with caution advised regarding risk of tendon rupture. The patient?s kidney function 07/28/24 and QTC interval from EKG on 12/01/24 have been reviewed. - Monitoring for progression towards orbital cellulitis was discussed, with specific attention to new symptoms such as worsening eye pain, reduced eye mobility, or visual changes. - Follow-up recommended with their primary care physician, Dr. Sissy Lisa.. Urgent care is advised if symptoms worsen such as above. Medications: New levofloxacin 500 mg PO DAILY 7 tabs 0RF 7 days Coding Level of Care Code Est Pt Level 3 (68782) Diagnoses Preseptal cellulitis of right lower eyelid L03.213
--- OUTSIDE RECORDS SUMMARY | 2025-03-31 09:00 | XMS_ITS | Encounter Summary ---
Author Organization [employer] Address [address] [facility] 7 [place] [address] Care Team Providers Care Human Capital Manager Name Role Phone Unavailable Primary Care [...]
--- OUTSIDE RECORDS SUMMARY | 2025-03-31 09:00 | XMS_ITS | Encounter Summary ---
Author Organization [employer] Address [address] [facility] 7 [place] [address] Care Team Providers Care Finish Cleaner Name Role Phone Unavailable Primary Care Provider [...]
--- OUTSIDE RECORDS SUMMARY | 2025-03-31 09:00 | XMS_ITS | Encounter Summary ---
Author Organization [employer] Address [address] [facility] [address] [place] [address] Care Team Providers Care Insurance Agency Sales Manager Name Role Phone Unavailable Primary Care [...]
--- OUTSIDE RECORDS SUMMARY | 2025-03-31 09:00 | XMS_ITS | Encounter Summary ---
Author Organization [employer] Address [address] [facility] [address] [place] [address] Care Team Providers Care Clerk Travel Reservations Name Role Phone Unavailable Primary Care Provider [...]
--- OUTSIDE RECORDS SUMMARY | 2025-03-31 09:00 | XMS_ITS | Patient Health Record ---
Author Organization [facility] Address [address] [place] [address] Care Team Providers Care Quill Cleaner Name Role Phone Sharon Brown MD Primary Care Provider Vinh Stanford Unavailable [phone] Allergies Allergen (clinical drug ingredient) Drug/Non Drug [...] Status Risk Notes Problem Plantar fascial fibromatosis (38052700) Plantar fascial fibromatosis (M72.2) Active confirmed Improved ,Unresol urmila Plan Of Treatment No Information Insurance Providers Payer Name Payer Address Payer Phone Subscriber Number Group Number Insured Name Patient Relationship to Insured Coverage Start Date Coverage End Date [facility] [address] [place] [address] [id number] Darya Gomez Self - patient is the insured Medical (General) History Medical History History ICD Code Arthritis of hip - B/L Depression Scarlet fever chronic sinusitis Warts Measles Chicken pox Surgical History Surgery Date(Month/Year) D&C ear surgery knee surgery tubal ligation wisdom teeth extraction Tubal reanastomosis 09/24/11 Hospitalization History Reason Date(Month/Year) Xray Left Foot [facility] d 10/06/19
--- OUTSIDE RECORDS SUMMARY | 2025-03-31 09:00 | XMS_ITS | Clinical Summary ---
Author Organization [employer] Address [address] [place] [address] [address] [place] [address] Care Team Providers Care Home Office Representative Name Role Phone Unavailable Primary Care Provider [...] Additional history exists COVID-19 Vaccine ( season) 2025 05/17/2021, 04/26/2021 Influenza Vaccine (#1) 2025 9, [...]
--- OUTSIDE RECORDS SUMMARY | 2025-03-31 09:00 | XMS_ITS | Clinical Summary ---
Author Organization [facility] [address] [facility] Address [address] [place] [address] Phone Care Team Providers Care Material Requirements Worker Name Role Phone Unavailable Primary Care Provider [...] Acquired hypothyroidism 01/25/2021 Arthritis, hip 01/05/2019 Immunizations Immunization Administration Dates Next Due Influenza Quadravalent, MDCK [...] TEETH EXTRACTION OTHER SURGICAL HISTORY 09/24/11 PROCEDURE: [place] SALPINGOSTOMY; COMMENT: tubal reanastomosis OTHER SURGICAL HISTORY [...] 05/19/2022 Social Influencers of Health Screening 05/19/2022 Depression Screening 06/10/2024 COVID-19 Vaccine ( season) 2025 05/17/2021, 04/26/2021 Influenza Vaccine (#1) 2025 9, 02/25/2018, 03/12/2014, Additional history exists Cholesterol Screening (Lipid Panel) 12/29/2025 12/29/2020 Colorectal Cancer Screening: Colonoscopy 08/07/2028 08/07/2018 Cervical Cancer Screening: HPV 08/15/2028 08/16/2023 DTaP,Tdap,and Td Vaccines (3 - Td or Tdap) 12/29/2030 12/29/2020, 05/14/2011 RSV Immunization Adult Patients (1 - 1-dose 75+ series) 2045 MMR Vaccines Aged Out 02/25/2018 No longer [...] (08/16/2023) Cervical Cancer Screening: HPV negative, abstracted us Historical Provider MD HEALTH MAINTENANCE Final Result * (ABNORMAL) Lipid panel (12/29/2020) LDL/HDL Ratio 4 0 - 4 Triglycerides 210(A) 0 - 150 mg/dL Cholesterol 251(A) 0 - 200 mg/dL HDL 58 >=40 mg/dL LDL Cholesterol 151(A) 0 - 100 mg/dL Blood Venous blood specimen / Unknown Result [facility] Historical Provider LAB BLOOD ORDERABLES Dara l Result * Colonoscopy (08/07/2018) Colonoscopy normal, abstracted Anatomical Region Laterality Modality Other Historical Provider [facility] Final Result * SCR MAMMO BI INCL [...] Most Recently Relevant to Health Maintenance Insurance [facility] [id number] [place] [address] Advance Directives Documents on File Type Date Recorded Patient Intervention Nurse Expl anation Health Care Decision (hx) 05/28/2022 HE ALTH CARE PROXY
== END 2025-03-31 10:11 | disposition home or self-care (01) ==
PROVIDERS: PCP Internal Medicine; Visit Provider Family Medicine
DX: L03.213 Periorbital cellulitis (principal)
CPT/HCPCS: 99213